=== PATIENT | male | born 1945 | race Caucasian/White ===

== ENCOUNTER 2017-06-17 10:22 | Day surgery (SDC) | payer MEDICARE ==
[2017-06-09 10:07] VITALS: BMI 31.1
[~2017-06-17 10:22] MED LIST: DEXAMETHASONE SOD PHOSPHATE 10 MG/ML 1 ML VIAL IV ONE; LACTATED RINGERS 1,000 ML IV SCH; LIDOCAINE 1% 20 ML VIAL (10MG/ML) FOR IV START INTRADERMA PRN; ONDANSETRON 4 MG/2 ML VIAL IVP ONE
[2017-06-17 11:01] VITALS: RESP 18; TEMP 98
[2017-06-17] MEDS ORDERED: LACTATED RINGERS 1,000 ML IV ONE (11:01)
[2017-06-17] MEDS: CYCLOPENTOLATE 1% OPHTH SOLN 2 ML BTL OP ONE ×3 (11:02→11:19)
[2017-06-17] MEDS: FLURBIPROFEN 0.03% OPHTH DROPS 2.5 ML BTL OP ONE ×3 (11:05→11:21)
[2017-06-17] MEDS: PHENYLEPHRINE 10% OPHTH DROPS 5 ML BTL OP ONE ×3 (11:07→11:23)
[2017-06-17] MEDS ORDERED: PROPOFOL 10 MG/ML 20 ML VIAL IV ONE (12:11)
[2017-06-17] MEDS ORDERED: EPINEPHrine (PF) 0.5 ML in BALANCED SALT IRRIG SOLN COMB2 500 ML IRRIGATION ONE (12:14)
[2017-06-17] MEDS ORDERED: BALANCED SALT IRRIG SOLN COMB2 15 ML IRRIG.SOLN IRRIGATION ONE (12:21)
[2017-06-17] MEDS ORDERED: HYALURONATE SODIUM INTRAOCULAR 1 EACH SYRINGE (10MG/ML) INTRAOCULA ONE (12:22)
--- NOTE | 2017-06-17 12:34 | P.OP ---
Date of Procedure: 06/17/17 Procedure(s) Performed: PREOPERATIVE DIAGNOSIS: Cataract, right eye. POSTOPERATIVE DIAGNOSIS: Cataract, right eye. OPERATION: Phacoemulsification cataract, right eye. DESCRIPTION OF PROCEDURE: The patient was taken to the preoperative holding area. Intravenous Propofol was given so as to bring about adequate sedation. The following mixture was given for local anesthesia: 5 mL of 2% lidocaine, 5 mL of 0.75% Marcaine, and 1 mL of Wydase. Approximately 4 mL was injected in the retrobulbar space of the surgical eye. Additional 1 mL was then directed to the temporal area of the surgical eye. This was performed to allow adequate neurological block of the facial muscles. The patient was revived and then taken into the operative room. The patient was prepped and draped in the usual sterile manner for the operative eye. A lid speculum was put into position. The conjunctiva was resected back from the limbus in the 12 o'clock position. Bleeding was controlled with electrocautery. A #69 blade was then used and a half-thickness scleral incision approximately 1-mm posterior to the limbus was made on bare sclera. This was shelved in the clear cornea using a crescent knife. Next a 15-degree blade was used to make a stab incision at the 3 o' clock position at the corneolimbal interface. Keratome blade was then used and the superior wound was extended into the anterior chamber. Viscoelastic was injected into the anterior chamber and to maintain its form. Next, a cystotome was used and a continuous anterior capsulotomy was made without difficulty. Hydrodissection using a blunt cannula and BSS was performed. Phaco probe was then employed and a groove extending from 12 to 6 o'clock in the lens was created. A Yordy wand was used through the stab incision so as to perform a divide and conquer technique. Next an irrigation aspiration probe was utilized and any residual cortex was removed from the eye. Again, viscoelastic was injected into the anterior chamber. An Minh posterior chamber lens implant was placed in the cartridge and injected into the anterior chamber without difficulty. The Trust Metricsey hook was utilized to spin the lens into position and this was again performed without any difficulty. The irrigation and aspiration probe was again employed and any residual viscoelastic was removed from the eye. Then BSS was injected into the limbal stab incision and the anterior chamber re-inflated. The conjunctiva was reapproximated using electrocautery. One drop of 0.25% Timoptic was placed over the corneal along with TobraDex ophthalmic ointment. Two sterile patches and a Capps eye shield were taped into position. The patient was transported to the recovery room in stable condition. Pathology: none sent Condition: stable Disposition: same day
[2017-06-17 12:57] VITALS: BP 142/85; PULSE 53
[2017-06-17] MEDS ORDERED: BUPIVACAINE (PF) 0.75% 5 ML, HYALURONIDASE, HUMAN RECOMB 150 UNIT, LIDOCAINE 2% (PF) 10... MISCELLANE ONE ×3 (23:00)
[2017-06-17] MEDS ORDERED: GENTAMICIN/PREDNISOL AC OPHTH OINT 3.5GM OPHTHALMIC ONE (23:00)
[2017-06-17] MEDS ORDERED: TIMOLOL 0.5% OPHTH DROPS 5 ML BTL OP ONE (23:00)
== END 2017-06-17 13:31 | disposition home or self-care (01) ==
LOC: OR 10:22
PROVIDERS: ATTEND Ophthalmology
DX: H25.11 Age-related nuclear cataract, right eye (principal); E78.5 Hyperlipidemia, unspecified; E07.9 Disorder of thyroid, unspecified; Z79.82 Long term (current) use of aspirin; Z79.890 Hormone replacement therapy; Z79.899 Other long term (current) drug therapy; Z88.0 Allergy status to penicillin; Z91.030 Bee allergy status; Z91.018 Allergy to other foods
CPT/HCPCS: 66984; V2632; J3470; J2001; J0171; J2704

== ENCOUNTER 2018-02-17 08:43 | Day surgery (SDC) | payer MEDICARE ==
[2018-02-13 08:54] VITALS: BMI 29.7
[~2018-02-17 08:43] MED LIST changes: -DEXAMETHASONE SOD PHOSPHATE 10 MG/ML 1 ML VIAL IV ONE; -LIDOCAINE 1% 20 ML VIAL (10MG/ML) FOR IV START INTRADERMA PRN; -ONDANSETRON 4 MG/2 ML VIAL IVP ONE
[2018-02-17 09:30] VITALS: RESP 16; TEMP 97.9
[2018-02-17] MEDS ORDERED: PROPOFOL 10 MG/ML 20 ML VIAL IV ONE (10:38)
--- NOTE | 2018-02-17 11:12 | P.PCN ---
Date of Procedure: 02/17/18 Procedure(s) Performed: Procedure: Total colonoscopy. Preoperative diagnosis: Screening for neoplasia. Postoperative diagnosis: Exam within normal limits. Preparation: HalfLytely prep. Sedation: Was provided by anesthesia. Brief clinical history: The patient is a 72-year-old male who is scheduled for this evaluation for screening for neoplasia because of age as risk factor as well as history of polyps and family history of colon cancer in his dad. His last exam was in 2012. The patient has no abdominal complaints, bleeding or anemia. Procedure: With the patient on his left lateral decubitus position and after informed consent and adequate sedation, the perianal area was inspected and it did not show any fissures or fistulas. There were no masses felt on digital rectal examination. The Olympus CFQ 160L video colonoscope was then inserted in the rectum in the usual fashion and advanced to the cecum. The mucosa appeared healthy. No polyps or tumors were seen or any obvious diverticular disease or other pathology. I retroflexed the endoscope in the rectum before the endoscope was withdrawn. The patient tolerated the procedure well. Plan: The patient was reassured. He will follow up with you as planned and I recommended repeat exam in 5 years.
[2018-02-17 11:28] VITALS: BP 131/78; PULSE 58
[2018-02-17] MEDS ORDERED: LACTATED RINGERS 1,000 ML IV SCH (21:45)
== END 2018-02-17 12:04 | disposition home or self-care (01) ==
LOC: ORWHC2ENDO 08:43
DX: Z12.11 Encounter for screening for malignant neoplasm of colon (principal); M19.90 Unspecified osteoarthritis, unspecified site; N40.0 Benign prostatic hyperplasia without lower urinary tract symptoms; E78.5 Hyperlipidemia, unspecified; E07.9 Disorder of thyroid, unspecified; Z80.0 Family history of malignant neoplasm of digestive organs; Z88.0 Allergy status to penicillin; Z91.018 Allergy to other foods; Z86.010 Personal history of colon polyps; Z79.82 Long term (current) use of aspirin; Z79.899 Other long term (current) drug therapy
CPT/HCPCS: J2704; G0105

== ENCOUNTER → 2021-01-24 | Outpatient (CLI) | payer OTHER ==
--- NOTE | 2021-01-24 18:36 | CONS ---
CONSULTATION DATE OF SERVICE: 01/24/2021 This 75-year-old gentleman has been evaluated in Sleep Center for possible obstructive sleep apnea-hypopnea syndrome. HISTORY OF PRESENT ILLNESS/SLEEP-WAKE EVALUATION: The patient had a sleep study in another institution in 2002 which showed mild obstructive sleep apnea-hypopnea syndrome. At present, the patient snores loudly according to his , has witnessed episodes of stopped breathing during sleep, restless leg symptoms during the night, sweating, awakenings from sleep up to 3 times with one episode of nocturia. The patient also has kicking movements during the night. No history of hypnagogic hallucinations, sleep paralysis or cataplexy. During the day, the patient feels significant sleepiness. [place] Sleepiness Scale is in very high range at 18. The patient may take up to 2 naps a day, usually about 3 or 4 p.m. and 7 p.m. PAST MEDICAL HISTORY: Positive for hypothyroidism, hyperlipidemia, arthritis. PAST SURGICAL HISTORY: Left knee meniscus surgery, bilateral cataract surgery. MEDICATIONS: 1. Lipitor 40 mg once a day. 2. Synthroid 120 mcg once a day. 3. Celebrex 200 mg twice a day. 4. Vitamin D. REVIEW OF SYSTEMS: No fevers. No double vision. No recent chest pain. No shortness of breath. No abdominal pain. No bleeding episodes. No blood in the urine. No seizure episodes. Awakenings from sleep, snoring, sleepiness during the day. SOCIAL HISTORY: Negative for smoking or using alcohol. FAMILY HISTORY: Positive for heart problems, asthma, sleep apnea. PHYSICAL EXAMINATION: GENERAL: gentleman without distress. VITAL SIGNS: BP 119/67, HR 71, RR 15, height 5 feet 5-1/2 inches, weight 194.8 pounds, body mass index 31.9, temperature 97.3, oxygen saturation at room air 98%. HEENT: PERRLA, EOMI, evaluation of oropharynx showed tongue protrudes midline. Extremely low position of soft palate; Mallampati IV. NECK: Supple, no JVD. Thyroid is not palpable. Neck measures 16-1/2 inches in circumference. LUNGS: Clear to percussion and to auscultation. Good air exchange. No wheezing or rhonchi. HEART: S1, S2 regular. No murmurs, gallops, or rubs. ABDOMEN: Obese. EXTREMITIES: No clubbing or cyanosis. WALKING DRAGLINE OPERATOR: Awake, alert, and oriented X3. Cranial nerves 2 to 7 intact. There is no fasciculation or atrophy. noted. No focal deficits observed. IMPRESSION: 1. Loud snoring, witnessed episodes of stopped breathing during sleep, extremely low position of soft palate, Mallampati 4, borderline size of neck at 16-1/2 inches in circumference, daytime sleepiness; obstructive sleep apnea-hypopnea syndrome. 2. Significant excessive daytime sleepiness. [place] Sleepiness Scale is 18. The patient takes naps 2 times a day. Differential diagnosis should include hypersomnia and narcolepsy without cataplexy. 3. Obesity; body mass index 31.9. 4. Restless leg symptoms. 5. Periodic limb movement symptoms with kicking at night. 6. Hypothyroidism. 7. Hyperlipidemia. 8. Arthritis. 9. Status post left knee surgery for meniscus problems. 10.Status post bilateral cataract surgery. PLAN: 1. Polysomnography for evaluation of patient's breathing during sleep. 2. CPAP/BiPAP titration if sleep study confirms obstructive sleep apnea-hypopnea syndrome. 3. Preferable position during sleep on the side. 4. No driving if patient feels any sleepiness. 5. I will see patient for follow up visit to explain results of testing and following plan. Thank you very much for referring this patient for consultation. Sincerely, Ky Juarez MD, PhD, FAASM Diplomat of [employer] Sleep Medicine Board of [employer] [facility] [place] MMODL / IJN: [id number] /
== END ==
LOC: SLEEP 13:13
PROVIDERS: ATTEND Internal Medicine
DX: G47.33 Obstructive sleep apnea (adult) (pediatric) (principal); E03.9 Hypothyroidism, unspecified; E66.9 Obesity, unspecified; E78.5 Hyperlipidemia, unspecified; G25.81 Restless legs syndrome; M19.90 Unspecified osteoarthritis, unspecified site; G47.61 Periodic limb movement disorder; Z98.890 Other specified postprocedural states; Z68.31 Body mass index [BMI] 31.0-31.9, adult; Z98.41 Cataract extraction status, right eye; Z98.42 Cataract extraction status, left eye; Z79.899 Other long term (current) drug therapy; Z88.0 Allergy status to penicillin; Z91.030 Bee allergy status
CPT/HCPCS: 99211

== ENCOUNTER → 2021-04-04 | Outpatient (CLI) | payer OTHER ==
--- NOTE | 2021-04-05 08:29 | SFUN ---
SLEEP CENTER FOLLOW UP NOTE DATE OF SERVICE: 04/04/2021 75-year-old gentleman has been followed in Sleep Center to discuss results of the sleep study and following plan. I discussed results of sleep study with the patient and family in detail. Sleep study did not show any significant respiratory abnormalities, but it shows severe periodic limb movements 90.2 times per hour. [place] Sleepiness Scale today is in very high range of 21. CURRENT MEDICATIONS: Synthroid, Lipitor, aspirin, vitamin D3. PHYSICAL EXAMINATION: GENERAL: Patient in no distress. BP 131/71, HR 64, RR 15, height 5 feet 5-1/2 inches, weight 196.6 pounds, body mass index 32.1, temperature 97.1, oxygen saturation at room air 98%. HEENT: PERRLA, EOMI, evaluation of oropharynx showed tongue protrudes midline. NECK: Supple, no JVD. Thyroid is not palpable. LUNGS: Clear to percussion and to auscultation. Good air exchange. No wheezing or rhonchi. HEART: S1, S2 regular. No murmurs, gallops, or rubs. ABDOMEN: Soft and nontender. Bowel sounds are present. No organomegaly appreciated. EXTREMITIES: No clubbing or cyanosis. APPEALS COORDINATOR: Awake, alert, and oriented X3. Cranial nerves 2 to 7 intact. There is no fasciculation or atrophy. noted. No focal deficits observed. IMPRESSION: 1. No significant respiratory abnormalities during the sleep study. 2. Severe periodic limb movements 90.2 times per hour with 2.3 microarousals per hour. 3. Mild obesity. 4. Hypothyroidism. 5. Hyperlipidemia. 6. Arthritis. 7. Status post left knee surgery for meniscus problems. 8. Status post bilateral cataract surgery. PLAN: 1. I will start patient with Mirapex 0.125 mg 1-2 tablets at bedtime with a goal to prevent periodic limb movements. 2. Sleep hygiene with regular time in bed for 7-1/2 to 8 hours. 3. No driving if feeling sleepiness. 4. Watching and losing weight. Thank you very much for allowing me to participate in management of your patient. Sincerely, Ky Juarez MD, PhD, FAASM Diplomat of [employer] Sleep Medicine Board of [employer] [facility] [place] MMODL / IJN: [id number] /
== END ==
LOC: SLEEP 14:46
PROVIDERS: ATTEND Internal Medicine
DX: G47.8 Other sleep disorders (principal); G47.61 Periodic limb movement disorder; E66.9 Obesity, unspecified; E03.9 Hypothyroidism, unspecified; E78.5 Hyperlipidemia, unspecified; M19.90 Unspecified osteoarthritis, unspecified site; Z98.890 Other specified postprocedural states; Z98.49 Cataract extraction status, unspecified eye; Z68.32 Body mass index [BMI] 32.0-32.9, adult; Z79.899 Other long term (current) drug therapy

== ENCOUNTER → 2023-01-24 | Day surgery (SDC) | payer OTHER ==
[2023-01-22 09:24] VITALS: BMI 29.0
[~2023-01-24] MED LIST changes: +LIDOCAINE 1% (10MG/ML) FOR IV START INTRADERMA PRN; +PROPOFOL 10 MG/ML 20 ML VIAL IV ONE
[2023-01-24 08:25] VITALS: TEMP 97.6
--- NOTE | 2023-01-24 09:07 | P.PCN ---
Date of Procedure: 01/24/23 Procedure(s) Performed: BRIEF HISTORY: Patient is a 77-year-old pleasant white male scheduled for an elective colonoscopy as a part of screening for colon cancer and family history of colon cancer. PROCEDURE PERFORMED: Colonoscopy. PREOPERATIVE DIAGNOSIS: Screening for colon cancer/family history of colon cancer. IV sedation per Anesthesia. PROCEDURE: After informed consent was obtained, the patient, was brought into the endoscopy unit. IV sedation was administered by Anesthesia under continuous monitoring. Digital rectal examination was normal. Initially the Olympus CF-160 flexible video colonoscope was then inserted in the rectum, gradually advanced into the cecum without any difficulty. Careful examination was performed as the scope was gradually being withdrawn. Ileocecal valve and the appendiceal orifice were visualized and appeared normal. Prep was excellent. Mucosa of the cecum, ascending colon, transverse colon, descending colon, sigmoid colon, and rectum appeared normal. Scattered sigmoid diverticulosis Retroflexion was performed in the rectum and no lesions were seen. The patient tolerated the procedure well. IMPRESSION: Normal-appearing colon from rectum to cecum with no evidence of colorectal neoplasia . Scattered sigmoid diverticula RECOMMENDATIONS: Findings of this examination were discussed with the patient as well as his family. He was advised to have a repeat screening colonoscopy in 5 years because of the family history of colon cancer..
[2023-01-24 09:14] VITALS: RESP 16
[2023-01-24 09:34] VITALS: BP 103/62; PULSE 72
== END ==
LOC: ORWHC2ENDO 07:57
PROVIDERS: ATTEND Internal Medicine Gastroenterology
DX: Z12.11 Encounter for screening for malignant neoplasm of colon (principal); K57.30 Diverticulosis of large intestine without perforation or abscess without bleeding; E78.5 Hyperlipidemia, unspecified; E03.9 Hypothyroidism, unspecified; Z80.0 Family history of malignant neoplasm of digestive organs; Z79.890 Hormone replacement therapy; Z79.899 Other long term (current) drug therapy
CPT/HCPCS: 45378; J2704

== ENCOUNTER 2023-06-11 03:34 | Observation (INO) | payer OTHER, MEDICARE ==
[2023-06-11] MEDS ORDERED: NITROGLYCERIN OINT 1 INCH/GM PACKET TOPICAL STA (03:40)
--- NOTE | 2023-06-11 03:49 | ED ---
Chest Pain HPI - General Chief Complaint: Chest Pain Stated Complaint: Chest Pain Time Seen by Provider: 06/11/23 03:39 Source: patient, EMS Mode of arrival: EMS Limitations: no limitations - History of Present Illness Initial Comments: Emiliano is a pleasant 77-year-old gentleman who presents the ER today via ambulance for evaluation of chest pain. Patient reports that pain began on Friday described as a pressure-like sensation in his chest with the occasional stabbing pains. Patient has no cardiac history so he due to the pain. Patient was able to shovel snow off the walkway did have the pain at that time did feel he can slightly worse. Today patient was unable this sleep due to the pain, felt like the pain radiated from his chest into his back. Patient no associated diaphoresis lightheadedness or shortness of breath. Had no fevers or chills. Patient did have COVID at [facility] time but has been well since then. - Related Data Home Medications Medication Instructions Recorded Confirmed Atorvastatin [Lipitor] 40 mg PO DAILY 03/12/17 01/24/23 Cholecalciferol [Vitamin D3] 1,000 unit PO DAILY 03/12/17 01/24/23 Levothyroxine Sodium [Synthroid] 125 mcg PO QAM 03/12/17 01/24/23 Vit C/E/Zn/Coppr/Lutein/Zeaxan 1 each PO DAILY 02/13/18 01/24/23 [Preservision Areds 2 Softgel] Allergies Allergy/AdvReac Type Severity Reaction Status Date / Time bee venom protein (honey bee) Allergy Swelling Verified 01/24/23 08:18 Penicillins Allergy Anaphylaxis Verified 01/24/23 08:18 Review of Systems ROS Statement: Those systems with pertinent positive or pertinent negative responses have been documented in the HPI. ROS Other: All systems not noted in ROS Statement are negative. EKG Findings - EKG Comments: EKG Findings:: EKG obtained due to complaint of chest pain, EKG obtained at 3:40 AM, rate is 66 rhythm is sinus with occasional PVCs, there Q waves in the anterior leads, no acute ST elevations or depressions no evidence of acute ischemia or infarction. The EKG obtained due to patient's complaint of chest pain EKG obtained at 6:15 AM, rate is 56 rhythm is sinus bradycardia, normal axis, normal intervals no acute ST elevations or depressions no evidence of acute ischemia or infarction. Past Medical History Past Medical History: Cancer, Hyperlipidemia, Osteoarthritis (OA), Sleep Apnea/CPAP/BIPAP, Thyroid Disorder Additional Past Medical History / Comment(s): possible sleep apnea-no tx., enlarged prostate, hx. colon polyps prostate ca 2020 radiation tx and clear History of Any Multi-Drug Resistant Organisms: None Reported Additional Past Surgical History / Comment(s): lt eye vitrectomy( july 2016).vasectomy, cataracts removed,colonoscopy Past Anesthesia/Blood Transfusion Reactions: No Reported Reaction Past Psychological History: No Psychological Hx Reported Smoking Status: Never smoker Past Alcohol Use History: None Reported Past Drug Use History: None Reported - Past Family History Mother Additional Family Medical History / Comment(s): CABG Father Family Medical History: Cancer Brother(s) Family Medical History: Cancer, Diabetes Mellitus Additional Family Medical History / Comment(s): kidney General Exam Limitations: no limitations Course Vital Signs 06/11/23 06/11/23 06/11/23 03:35 04:39 05:00 Temperature 98.6 F Pulse Rate 67 55 L Respiratory 18 16 Rate Blood Pressure 135/76 131/80 O2 Sat by Pulse 91 L 98 97 Oximetry 06/11/23 06:09 Temperature Pulse Rate 56 L Respiratory 20 Rate Blood Pressure 143/75 O2 Sat by Pulse 94 L Oximetry Chest Pain MDM - MDM Was pt. sent in by a medical professional or institution (, PA, [facility], urgent care, hospital, or snf...) When possible be specific @ -No Did you speak to anyone other than the patient for history (EMS, parent, family, police, friend...)? What history was obtained from this source @ -No Did you review nursing and triage notes (agree or disagree)? Why? @ -I reviewed and agree with nursing and triage notes Were old charts reviewed (outside hosp., previous admission, EMS record, old EKG, old radiological studies, urgent care reports/EKG's, snf records)? Report findings @ -No old charts were reviewed Differential Diagnosis (chest pain, altered mental status, abdominal pain women, abdominal pain men, vaginal bleeding, weakness, fever, dyspnea, syncope, headache, dizziness, GI bleed, back pain, seizure, CVA, palpatations, mental health)? @ -Differential Chest Pain: Stable Angina, Unstable Angina, STEMI, NSTEMI Aortic Dissection, Pneumothorax, Musculoskeletal, Esophageal Spasm GERD, Cholecystitis, Pancreatitis, Zoster, this is not meant to be an all-inclusive list. EKG interpreted by me (3pts min.). @ -As above X-rays interpreted by me (1pt min.). @ -Low lung volume, no obvious consolidations no widened mediastinum CT interpreted by me (1pt min.). @ -None done U/S interpreted by me (1pt. min.). @ -None done What testing was considered but not performed or refused? (CT, X-rays, U/S, labs)? Why? @ -None What meds were considered but not given or refused? Why? @ -Narcotic pain medications declined Did you discuss the management of the patient with other professionals (tiara abdul i.eLivan Estrada, PA, [facility], lab, RT, psych nurse, social work lecturer, asset protection manager, teacher, landcare officer, field nurse case manager)? Give summary @ -No Was smoking cessation discussed for >3mins.? @ -No Was critical care preformed (if so, how long)? @ -No Were there social determinants of health that impacted care today? How? (Homelessness, low income, unemployed, alcoholism, drug addiction, transportation, low edu. Level, literacy, decrease access to med. care, care home, rehab)? @ -No Was there de-escalation of care discussed even if they declined (Discuss DNR or withdrawal of care, Hospice)? DNR status @ -No What co-morbidities impacted this encounter? (DM, HTN, Smoking, COPD, CAD, Cancer, CVA, ARF, Chemo, Hep., AIDS, mental health diagnosis, sleep apnea, morbid obesity)? @ -None Was patient admitted / discharged? Hospital course, mention meds given and route, prescriptions, significant lab abnormalities, going to OR and other pertinent info. @ Admit Patient was seen and evaluated, history is obtained from the patient and EMS. 77-year-old male no cardiac history was pressure-like squeezing chest pain for a day and a half. Pain kept him up from sleeping tonight which prompted him to the ER. Pain improved significantly after nitro from EMS. Patient will be admitted for cardiac workup. Undiagnosed new problem with uncertain prognosis? @ -No Drug Therapy requiring intensive monitoring for toxicity (Heparin, Nitro, Insulin, Cardizem)? @ -No Were any procedures done? @ -No Diagnosis/symptom? @ -Chest pain Acute, or Chronic, or Acute on Chronic? @ -Acute Uncomplicated (without systemic symptoms) or Complicated (systemic symptoms)? @ -default Side effects of treatment? @ -No Exacerbation, Progression, or Severe Exacerbation? @ -No Poses a threat to life or bodily function? How? (Chest pain, [place], [place], pneumonia, PE, COPD, DKA, ARF, appy, cholecystitis, CVA, Diverticulitis, Homicidal, Suicidal, threat to staff... and all critical care pts) @ -Yes Disposition Clinical Impression: Chest pain Disposition: ADMITTED IP TO THIS HOSP Condition: Stable
[2023-06-11 03:53] VITALS: TEMP 98.6
[2023-06-11 04:12] LABS: Basophils % (A) 0 %; Eosinophils # (A) 0.1 k/uL (0-0.7); Eosinophils % (A) 1 %; HCT 40.3 % (39.0-53.0); HGB 14.2 gm/dL (13.0-17.5); Lymphocytes # (A) 1.3 k/uL (1.0-4.8); Lymphocytes % (A) 12 %; MCH 32.5 pg (25.0-35.0); MCHC 35.3 g/dL (31.0-37.0); MCV 92.1 fL (80.0-100.0); Mean Platelet Volume 7.4; Monocytes # (A) 0.5 k/uL (0-1.0); Monocytes % (A) 5 %; Neutrophils # (A) 8.5 k/uL (1.3-7.7); Neutrophils % (A) 79 %; Platelet Count 176 k/uL (150-450); RBC 4.38 m/uL (4.30-5.90); RDW 12.8 % (11.5-15.5); WBC 10.7 k/uL (3.8-10.6)
[2023-06-11 04:20] LABS: INR 0.9 (<1.2); Prothrombin Time 10.3 sec (10.0-12.5)
[2023-06-11 04:21] LABS: ALT 20 U/L (4-49); AST 20 U/L (17-59); African American GFR (CKD) >90 (>60 ml/min/1.73 sqM); Albumin 3.5 g/dL (3.5-5.0); Alkaline Phosphatase 117 U/L (38-126); Anion Gap 5 mmol/L; Blood Urea Nitrogen 12 mg/dL (9-20); Calcium 8.5 mg/dL (8.4-10.2); Carbon Dioxide 24 mmol/L (22-30); Chloride 107 mmol/L (98-107); Glucose 129 mg/dL (74-99); Lipase 102 U/L (23-300); Magnesium 1.9 mg/dL (1.6-2.3); Non-African American GFR(CKD) >90 (>60 ml/min/1.73 sqM); Potassium 4.2 mmol/L (3.5-5.1); Sodium 136 mmol/L (137-145); Total Bilirubin 0.6 mg/dL (0.2-1.3); Total Protein 5.9 g/dL (6.3-8.2)
--- NOTE | 2023-06-11 04:21 | XR ---
EXAMINATION TYPE: XR chest 2V DATE OF EXAM: 06/11/2023 COMPARISON: NONE HISTORY: Chest pain since Friday. TECHNIQUE: Frontal and lateral views of the chest are obtained. FINDINGS: Low lung volumes are present. Patchy bibasilar opacities. No pleural effusion or pneumotho rax seen bilaterally. Cardiac silhouette size is within normal limits. Bridging osteophytes in the th oracic spine are noted.. There are old healed fractures of the posterolateral right sixth and seventh ribs. IMPRESSION: Low lung volumes with patchy left greater than right bibasilar atelectasis and/or develo ping acute infiltrates.
[2023-06-11 04:30] LABS: NT-Pro-B-Type Natriuretic Pept 92 pg/mL
[2023-06-11] MEDS ORDERED: ASPIRIN 81 MG PO SCH (09:00)
[2023-06-11] MEDS ORDERED: DOCUSATE 100 MG CAP PO PRN (09:28)
[2023-06-11] MEDS ORDERED: NALOXONE 0.4 MG/ML 1 ML VIAL IV PRN (09:29)
[2023-06-11] MEDS ORDERED: ONDANSETRON 4 MG/2 ML VIAL IVP PRN (09:29)
[2023-06-11] MEDS ORDERED: ACETAMINOPHEN TAB 325 MG TAB PO PRN (09:29)
[2023-06-11] MEDS ORDERED: SODIUM CHLORIDE 0.9% 1,000 ML IV SCH (09:30)
[2023-06-11] MEDS ORDERED: LEVOTHYROXINE 125 MCG TAB PO SCH (09:30)
[2023-06-11] MEDS ORDERED: CHOLECALCIFEROL 25 MCG (1000 IU) TABLET PO SCH (09:30)
--- NOTE | 2023-06-11 09:31 | P.CRDCN ---
History of Present Illness History of present illness: HISTORY OF PRESENT ILLNESS: This is a 77-year-old male with a past medical history significant for hyperlipidemia and hypothyroidism. Patient does not follow with a stitcher tape controlled machine. We have been asked to see the patient in consultation for chest pain. Patient examined at the bedside. In the emergency room. The patient reports she started developing chest pressure on Friday. He states the pain starts in the front of his chest and radiates into his back. He does report that he shovel his driveway twice this week and did not have any chest pain at that time. He also reports having pain in the epigastric area. He reports nausea with dry heaves. He denied any shortness of breath. He currently denies any chest pain or pressure. Denies shortness of breath. Vital signs are stable. DIAGNOSTICS: - EKG reveals sinus mechanism with nonspecific ST-T wave changes. PVCs. No signs of acute ischemia. - Chest xray low lung volumes with patchy left greater than right bibasilar atel ectasis and/or developing infiltrates - Laboratory data: WBC 10.7. Hemoglobin 14.2. Platelet count 176. Sodium 136. Potassium 4.2. BUN 12. Creatinine 0.62. Magnesium 1.9. Troponin negative x 2 - Current home cardiac medications include Lipitor 40 mg at night and aspirin 81 mg daily. REVIEW OF SYSTEMS: At the time of my exam: CONSTITUTIONAL: Denies fever or chills. HEENT: Denies blurred vision, vision changes, or eye pain. Denies hemoptysis CARDIOVASCULAR: Denies chest pain. Denies orthopnea. Denies PND. Denies palpitations RESPIRATORY: Denies shortness of breath. GASTROINTESTINAL: Denies abdominal pain. Denies nausea or vomiting. HEMATOLOGIC: Denies bleeding disorders. GENITOURINARY: Denies any blood in urine. SKIN: Denies pruitis. Denies rash. PHYSICAL EXAM: VITAL SIGNS: Reviewed. GENERAL: Well-developed in no acute distress. HEENT: Head is normocephalic. Pupils are equal, round. Sclerae anicteric. Mucous membranes of the mouth are moist. Neck supple. No JVD or thyromegaly LUNGS: Respirations even and unlabored. Lungs essentially clear to auscultation bilaterally. HEART: Regular rate and rhythm. S1 and S2 heard. ABDOMEN: Soft. Nondistended. Nontender. EXTREMITIES: Normal range of motion. No clubbing or cyanosis. Peripheral pulses intact. No lower extremity edema NEUROLOGIC: Awake and alert. Oriented x 3. ASSESSMENT: Chest pain,, troponin negative x 3 Hyperlipidemia History of prostate cancer with radiation, 2020 PLAN: An acute coronary event has been ruled out Resume aspirin and atorvastatin Obtain 2D echo to assess cardiac structure and function Patient to undergo stress echocardiogram today If negative, the patient may be discharged home today from a cardiac standpoint Nurse practitioner note has been reviewed by physician. Signing provider agrees with the documented findings, assessment, and plan of care documented by DIRECTOR as a scribe. Past Medical History Past Medical History: Cancer, Hyperlipidemia, Osteoarthritis (OA), Sleep Apnea/CPAP/BIPAP, Thyroid Disorder Additional Past Medical History / Comment(s): possible sleep apnea-no tx., enlarged prostate, hx. colon polyps prostate ca 2020 radiation tx and clear History of Any Multi-Drug Resistant Organisms: None Reported Additional Past Surgical History / Comment(s): lt eye vitrectomy( july 2016).vasectomy, cataracts removed,colonoscopy Past Anesthesia/Blood Transfusion Reactions: No Reported Reaction Past Psychological History: No Psychological Hx Reported Smoking Status: Never smoker Past Alcohol Use History: None Reported Past Drug Use History: None Reported - Past Family History Mother Additional Family Medical History / Comment(s): CABG Father Family Medical History: Cancer Brother(s) Family Medical History: Cancer, Diabetes Mellitus Additional Family Medical History / Comment(s): kidney Medications and Allergies Home Medications Medication Instructions Recorded Confirmed Type Atorvastatin [Lipitor] 40 mg PO HS 03/12/17 06/11/23 History Levothyroxine Sodium [Synthroid] 125 mcg PO QAM 03/12/17 06/11/23 History Vit C/E/Zn/Coppr/Lutein/Zeaxan 1 cap PO BID 02/13/18 06/11/23 History [Preservision Areds 2 Softgel] Aspirin 81 mg PO ONCE 06/11/23 06/11/23 History Cholecalciferol [Vitamin D3 (25 25 mcg PO BID 06/11/23 06/11/23 History Mcg = 1000 Iu)] Docusate [Colace] 100 mg PO DAILY PRN 06/11/23 06/11/23 History Allergies Allergy/AdvReac Type Severity Reaction Status Date / Time bee venom protein (honey bee) Allergy Swelling Verified 06/11/23 07:03 Penicillins Allergy Anaphylaxis Verified 06/11/23 07:03 Physical Exam Vitals: Vital Signs Temp Pulse Resp BP Pulse Ox 06/11/23 06:09 56 L 20 143/75 94 L 06/11/23 05:00 97 06/11/23 04:39 55 L 16 131/80 98 06/11/23 03:35 98.6 F 67 18 135/76 91 L Intake and Output 06/10/23 06/11/23 06/11/23 22:59 06:59 14:59 Other: Weight 83.915 kg Results 06/11/23 04:05 06/11/23 04:05 Cardiac Enzymes 06/11/23 06/11/23 Range/Units 04:05 04:05 AST 20 (17-59) U/L Troponin I <0.012 (0.000-0.034) ng/mL Coagulation 06/11/23 Range/Units 04:05 PT 10.3 (10.0-12.5) sec APTT 23.0 (22.0-30.0) sec CBC 06/11/23 Range/Units 04:05 WBC 10.7 H (3.8-10.6) k/uL RBC 4.38 (4.30-5.90) m/uL Hgb 14.2 (13.0-17.5) gm/dL Hct 40.3 (39.0-53.0) % Plt Count 176 (150-450) k/uL Comprehensive Metabolic Panel 06/11/23 Range/Units 04:05 Sodium 136 L (137-145) mmol/L Potassium 4.2 (3.5-5.1) mmol/L Chloride 107 (98-107) mmol/L Carbon Dioxide 24 (22-30) mmol/L BUN 12 (9-20) mg/dL Creatinine 0.62 L (0.66-1.25) mg/dL Glucose 129 H (74-99) mg/dL Calcium 8.5 (8.4-10.2) mg/dL AST 20 (17-59) U/L ALT 20 (4-49) U/L Alkaline Phosphatase 117 (38-126) U/L Total Protein 5.9 L (6.3-8.2) g/dL Albumin 3.5 (3.5-5.0) g/dL Current Medications Generic Name Dose Route Start Last Admin Trade Name Freq PRN Reason Stop Dose Admin Aspirin 325 mg 06/12/23 09:00 Aspirin 325 Mg Tab PO DAILY REANNA Intake and Output 06/10/23 06/11/23 06/11/23 22:59 06:59 14:59 Other: Weight 83.915 kg 06/11/23 04:05 06/11/23 04:05
--- NOTE | 2023-06-11 12:27 | CA ---
Stress Echo Report Emiliano Low Age: 77 Gender: M : 1945 Exam Date: 06/11/2023 11:54 Exam Location: [place] [facility] Ht (in): 66 Wt (lb): 185 Ordering Physician: Jossie Diaz Referring Physician: [id number] [employer]ast Furnace Blower: Elena Dueñas RDCS Technologist Procedure CPT: Indication: CP ICD-9 Codes: Rhythm: Patient History: Chest pain and hypercholesterolemia Cardiac Medications: Medications in past 24 hours: Contrast: Stress Results Protocol: Tuan Total dose(mL): Exercise Duration (min:sec): 8:[address] Depression (mm): Angina Score: Lombardo Score: METS: 10.3 Resting HR: 59 Resting BP: 120 / 47 Peak HR: 126 Peak BP: 170 / 65 Max Predicted HR: 143 88 % Max Predicted HR Target HR: 122 Double Product: [id number] Stress Summary: BP Response: Reason for Termination: MAX EXERTION/TARGET HR Cardiac Symptoms: NO SYMPTOMS ECG Analysis Resting ECG: Normal sinus rhythm, normal ECG Stress ECG: No significant ST-T wave changes diagnostic for ischemia by ST segment analysis Arrhythmia: No arrhythmias or ectopic beats Echo Analysis Resting Echo: Normal segmental and global systolic function. No resting regional wall motion abnormality Peak Echo Analysis: Normal augmentation of global and segmental systolic function. No stress-induced regional wall motion abnormality MEASUREMENTS (Male/Female) Normal Values CONCLUSIONS Poor exercise tolerance for patient's age achieving 10.3 METS Normal clinical and hemodynamic response to exercise Nonischemic ECG and echocardiographic response to exercise Overall normal treadmill stress echo Dr Cr Hammond (Electronically Signed) Final Date: 11 June 2023 12:26
--- NOTE | 2023-06-11 12:49 | P.HPIM ---
History of Present Illness H&P Date: 06/11/23 Chief Complaint: Chest pain * 77-year-old gentleman past medical history significant for dyslipidemia, history of osteoarthritis, history of prostate cancer [facility] with complaints of chest pain. Patient states he started having symptoms about 48 hours ago and was having mid sternal chest pressure. This was also associated with stabbing chest discomfort. Patient states he was able to shovel snow however he did have pain at that time. Patient states his symptoms got worse. And was unable to sleep secondary to pain. Patient also complained of chest pain radiating to his back. He denies associated dizziness, shortness of breath or diaphoresis. * In ER included CBC which showed WBC of 10.7 hemoglobin of 14.2, INR 0.9 serum chemistry sodium 136 potassium 4.2 BUN 12 creatinine 0.62 glucose 129 lipase within normal limits * KG obtained in ER showed sinus bradycardia no significant ST segment changes GA interval of 168, heart rate of 56 * Chest x-ray obtained showed low lung volumes likely atelectasis * Patient was admitted to medical floor with consultation from cardiology with plan for assessment to rule out ACS REVIEW OF SYSTEMS: Chest pain, nausea, abdominal distention CONSTITUTIONAL: No fever, no malaise, no fatigue. HEENT: No recent visual problems or hearing problems. Denied any sore throat. CARDIOVASCULAR: Chest pain PULMONARY: No shortness of breath, no cough, no hemoptysis. GASTROINTESTINAL: nausea, abdominal distention NEUROLOGICAL: No headaches, no weakness, no numbness. HEMATOLOGICAL: Denies any bleeding or petechiae. GENITOURINARY: Denies any burning micturition, frequency, or urgency. MUSCULOSKELETAL/RHEUMATOLOGICAL: Denies any joint pain, swelling, or any muscle pain. ENDOCRINE: Denies any polyuria or polydipsia. PHYSICAL EXAMINATION: GENERAL: The patient is alert and oriented x3, not in any acute distress. Well developed, well nourished. HEENT: Pupils are round and equally reacting to light. EOMI. No scleral icterus. No conjunctival pallor. Normocephalic, atraumatic. No pharyngeal erythema. No thyromegaly. CARDIOVASCULAR: S1 and S2 present. No murmurs, rubs, or gallops. PULMONARY: Chest is clear to auscultation, no wheezing or crackles. ABDOMEN: Soft, nontender, nondistended, normoactive bowel sounds. No palpable organomegaly. MUSCULOSKELETAL: No joint swelling or deformity. EXTREMITIES: No cyanosis, clubbing, or pedal edema. NEUROLOGICAL: Gross neurological examination did not reveal any focal deficits. SKIN: No rashes. Past Medical History Past Medical History: Cancer, Hyperlipidemia, Osteoarthritis (OA), Sleep Apnea/CPAP/BIPAP, Thyroid Disorder Additional Past Medical History / Comment(s): possible sleep apnea-no tx., enla rged prostate, hx. colon polyps prostate ca 2020 radiation tx and clear History of Any Multi-Drug Resistant Organisms: None Reported Additional Past Surgical History / Comment(s): lt eye vitrectomy( july 2016).vasectomy, cataracts removed,colonoscopy Past Anesthesia/Blood Transfusion Reactions: No Reported Reaction Past Psychological History: No Psychological Hx Reported Smoking Status: Never smoker Past Alcohol Use History: None Reported Past Drug Use History: None Reported - Past Family History Mother Additional Family Medical History / Comment(s): CABG Father Family Medical History: Cancer Brother(s) Family Medical History: Cancer, Diabetes Mellitus Additional Family Medical History / Comment(s): kidney Medications and Allergies Home Medications Medication Instructions Recorded Confirmed Type Atorvastatin [Lipitor] 40 mg PO HS 03/12/17 06/11/23 History Levothyroxine Sodium [Synthroid] 125 mcg PO QAM 03/12/17 06/11/23 History Vit C/E/Zn/Coppr/Lutein/Zeaxan 1 cap PO BID 02/13/18 06/11/23 History [Preservision Areds 2 Softgel] Aspirin 81 mg PO ONCE 06/11/23 06/11/23 History Cholecalciferol [Vitamin D3 (25 25 mcg PO BID 06/11/23 06/11/23 History Mcg = 1000 Iu)] Docusate [Colace] 100 mg PO DAILY PRN 06/11/23 06/11/23 History Allergies Allergy/AdvReac Type Severity Reaction Status Date / Time bee venom protein (honey bee) Allergy Swelling Verified 06/11/23 07:03 Penicillins Allergy Anaphylaxis Verified 06/11/23 07:03 Physical Exam Vitals: Vital Signs Temp Pulse Resp BP Pulse Ox 06/11/23 07:25 56 L 18 131/83 94 L 06/11/23 06:09 56 L 20 143/75 94 L 06/11/23 05:00 97 01/31/24 04:39 55 L 16 131/80 98 06/11/23 03:35 98.6 F 67 18 135/76 91 L Intake and Output 06/10/23 06/11/23 06/11/23 22:59 06:59 14:59 Other: Weight 83.915 kg Results CBC & Chem 7: 06/11/23 04:05 06/11/23 04:05 Labs: Abnormal Lab Results - Last 24 Hours (Table) 06/11/23 06/11/23 Range/Units 04:05 04:05 WBC 10.7 H (3.8-10.6) k/uL Neutrophils # 8.5 H (1.3-7.7) k/uL Sodium 136 L (137-145) mmol/L Creatinine 0.62 L (0.66-1.25) mg/dL Glucose 129 H (74-99) mg/dL Total Protein 5.9 L (6.3-8.2) g/dL Assessment and Plan Assessment: Assessment and plan * Chest pain rule out acute coronary syndrome * History of hypothyroidism * Dyslipidemia history * Hx Prostate cancer posttreatment * In regards to chest pain, serial troponins ordered, cardiology consulted as needed EKG * Regards to hypothyroid continue patient on Synthyroid, * Regards to history of dyslipidemia continue Lipitor * Status is full code Time with Patient: Greater than 30
--- NOTE | 2023-06-11 12:58 | XR ---
EXAMINATION TYPE: XR KUB DATE OF EXAM: 06/11/2023 Comparison: None Clinical History: 77-year-old male Distention Findings: Lung bases are clear. Supine imaging limited for assessment of free air. Mild scattered stool. No dilated small bowel. No suspicious calcifications seen. Left-sided pelvic phleboliths. Some surgical material at the pubi c bodies on both sides. Impression: Nonobstructive bowel gas pattern. Mild scattered stool burden.
[2023-06-11] MEDS ORDERED: SIMETHICONE 80 MG CHEWABLE PO SCH (13:00)
--- NOTE | 2023-06-11 13:40 | P.DS ---
Providers Date of admission: 06/11/23 04:53 Expected date of discharge: 06/11/23 Attending physician: Kaity Manrique Primary care physician: [facility] Course: * 77-year-old gentleman past medical history significant for dyslipidemia, history of osteoarthritis, history of prostate cancer presents to the emergency department with complaints of chest pain. Patient states he started having symptoms about 48 hours ago and was having mid sternal chest pressure. This was also associated with stabbing chest discomfort. Patient states he was able to shovel snow however he did have pain at that time. Patient states his symptoms got worse. And was unable to sleep secondary to pain. Patient also complained of chest pain radiating to his back. He denies associated dizziness, shortness of breath or diaphoresis. * In ER included CBC which showed WBC of 10.7 hemoglobin of 14.2, INR 0.9 serum chemistry sodium 136 potassium 4.2 BUN 12 creatinine 0.62 glucose 129 lipase within normal limits * KG obtained in ER showed sinus bradycardia no significant ST segment changes AR interval of 168, heart rate of 56 * Chest x-ray obtained showed low lung volumes likely atelectasis * Patient was admitted to medical floor with consultation from cardiology with plan for assessment to rule out ACS * Patient was admitted and seen in ED, had a stress test completed that was negative, x-ray KUB was completed which showed nonobstructive bowel pattern and stool burden noted. Patient encouraged to take MiraLAX upon discharge REVIEW OF SYSTEMS: Chest pain, , abdominal distention resolved CONSTITUTIONAL: No fever, no malaise, no fatigue. HEENT: No recent visual problems or hearing problems. Denied any sore throat. CARDIOVASCULAR: Chest pain PULMONARY: No shortness of breath, no cough, no hemoptysis. GASTROINTESTINAL: nausea, abdominal distention RESOLVED NEUROLOGICAL: No headaches, no weakness, no numbness. HEMATOLOGICAL: Denies any bleeding or petechiae. GENITOURINARY: Denies any burning micturition, frequency, or urgency. MUSCULOSKELETAL/RHEUMATOLOGICAL: Denies any joint pain, swelling, or any muscle pain. ENDOCRINE: Denies any polyuria or polydipsia. PHYSICAL EXAMINATION: GENERAL: The patient is alert and oriented x3, not in any acute distress. Well developed, well nourished. HEENT: Pupils are round and equally reacting to light. EOMI. No scleral icterus. No conjunctival pallor. Normocephalic, atraumatic. No pharyngeal erythema. No thyromegaly. CARDIOVASCULAR: S1 and S2 present. No murmurs, rubs, or gallops. PULMONARY: Chest is clear to auscultation, no wheezing or crackles. ABDOMEN: Soft, nontender, nondistended, normoactive bowel sounds. No palpable organomegaly. MUSCULOSKELETAL: No joint swelling or deformity. EXTREMITIES: No cyanosis, clubbing, or pedal edema. NEUROLOGICAL: Gross neurological examination did not reveal any focal deficits. SKIN: No rashes. Assessment and plan * Chest pain ruled out acute coronary syndrome * History of hypothyroidism * Dyslipidemia history * Hx Prostate cancer posttreatment * In regards to chest pain, serial troponins ordered, cardiology consulted , stress echo negative, likely etiology is constipation, encouraged to use Gas-X * Regards to hypothyroid continue patient on Synthyroid, * Regards to history of dyslipidemia continue Lipitor Patient Condition at Discharge: Stable Plan - Discharge Summary New Discharge Prescriptions: New Simethicone Chew [Mylicon Chew] 40 mg PO QID 7 Days #28 tab Continue Levothyroxine Sodium [Synthroid] 125 mcg PO QAM Atorvastatin [Lipitor] 40 mg PO HS Vit C/E/Zn/Coppr/Lutein/Zeaxan [Preservision Areds 2 Softgel] 1 cap PO BID Aspirin 81 mg PO ONCE Docusate [Colace] 100 mg PO DAILY PRN PRN Reason: Constipation Cholecalciferol [Vitamin D3 (25 Mcg = 1000 Iu)] 25 mcg PO BID Discharge Medication List Atorvastatin [Lipitor] 40 mg PO HS 03/12/17 [History] Levothyroxine Sodium [Synthroid] 125 mcg PO QAM 03/12/17 [History] Vit C/E/Zn/Coppr/Lutein/Zeaxan [Preservision Areds 2 Softgel] 1 cap PO BID 02/13/18 [History] Aspirin 81 mg PO ONCE 06/11/23 [History] Cholecalciferol [Vitamin D3 (25 Mcg = 1000 Iu)] 25 mcg PO BID 06/11/23 [History] Docusate [Colace] 100 mg PO DAILY PRN 06/11/23 [History] Simethicone Chew [Mylicon Chew] 40 mg PO QID 7 Days #28 tab 06/11/23 [Rx] Follow up Appointment(s)/Referral(s): Willis Worthy MD [Primary Care Provider] - 1-2 days Discharge Disposition: HOME SELF-CARE
[2023-06-11 14:49] VITALS: BP 141/89; PULSE 58; RESP 17
--- NOTE | 2023-06-11 17:42 | CA ---
Transthoracic Echo Report Name: Emiliano Low Age: 77 Gender: M : 1945 Exam Date: 06/11/2023 08:54 Exam Location: [place] [facility] Ht (in): 66 Wt (lb): 185 Ordering Physician: Zoë Robles DO Attending/Referring Phys: [id number] Drilling Assistant Belkis Ferris [facility] Procedure CPT: Indications: Chest Pain Cardiac Hx: Technical Quality: Fair Contrast 1: Total Dose (mL): Contrast 2: Total Dose (mL): MEASUREMENTS (Male / Female) Normal Values 2D ECHO LV Diastolic Diameter PLAX 4.7 cm 4.2 - 5.9 / 3.9 - 5.3 cm LV Systolic Diameter PLAX 3.2 cm IVS Diastolic Thickness 1.0 cm 0.6 - 1.0 / 0.6 - 0.9 cm LVPW Diastolic Thickness 1.1 cm 0.6 - 1.0 / 0.6 - 0.9 cm LV Relative Wall Thickness 0.4 LVOT Diameter 2.0 cm Ascending Aorta Diameter 3.2 cm M-MODE Aortic Root Diameter MM 2.7 cm LA Systolic Diameter MM 3.9 cm LA Ao Ratio MM 1.5 AV Cusp Separation MM 2.2 cm DOPPLER AV Peak Velocity 137.5 cm/s AV Peak Gradient 7.6 mmHg AV Mean Velocity 89.4 cm/s AV Mean Gradient 3.8 mmHg AV Velocity Time Integral 30.1 cm LVOT Peak Velocity 94.6 cm/s LVOT Peak Gradient 3.6 mmHg LVOT Velocity Time Integral 22.0 cm LVOT Stroke Volume 70.5 cm??? LVOT Stroke Volume Index 36.4 ml/m??? LVOT Cardiac Index 1901.2 cm???/min???m??? AV Area Cont Eq vti 2.3 cm??? AV Area Cont Eq pk 2.2 cm??? Mitral E Point Velocity 68.4 cm/s Mitral A Point Velocity 85.5 cm/s Mitral E to A Ratio 0.8 MV Deceleration Time 183.5 ms LV E' Lateral Velocity 9.5 cm/s Mitral E to LV E' Lateral Ratio 7.2 LV E' Septal Velocity 8.1 cm/s Mitral E to LV E' Septal Ratio 8.5 TR Peak Velocity 224.6 cm/s TR Peak Gradient 20.2 mmHg Right Atrial Pressure 3.0 mmHg Pulmonary Artery Systolic Pressu 23.2 mmHg Right Ventricular Systolic Press 23.2 mmHg FINDINGS Left Ventricle Mildly increased posterior wall thickness. Left ventricular cavity size normal. Normal left ventricular systolic function with no obvious regional wall motion abnormalities. Left ventricular ejection fraction is estimated at 55-60%. Right Ventricle Mild right ventricular dilatation. Right Atrium Normal right atrial size. Left Atrium Mild left atrial dilatation. Mitral Valve Structurally normal mitral valve. Mild mitral regurgitation. Aortic Valve Trileaflet aortic valve. No aortic valve stenosis or regurgitation. Tricuspid Valve Structurally normal tricuspid valve. Trace tricuspid regurgitation. Pulmonic Valve Structurally normal pulmonic valve. No pulmonic stenosis. Pericardium No pericardial effusion. Aorta Normal size aortic root and proximal ascending aorta. CONCLUSIONS Left ventricular ejection fraction is estimated at 55-60%. Normal left ventricular systolic function with no obvious regional wall motion abnormalities. Mild concentric LV No significant valvular dysfunction No significant chamber size abnormality No pericardial effusion Previewed by: Dr Cr Hammond (Electronically Signed) Final Date: 11 June 2023 17:41
[2023-06-11] MEDS ORDERED: ATORVASTATIN 40 MG TAB PO SCH (21:00)
[2023-06-11] MEDS ORDERED: HEPARIN SODIUM,PORCINE 5,000 UNIT/ML 1 ML VIAL SQ SCH (21:00)
[2023-06-12] MEDS ORDERED: ASPIRIN 325 MG TAB PO SCH (09:00)
== END 2023-06-11 14:31 | disposition home or self-care (01) ==
LOC: EC 03:34 → 6NMEDSUR 04:53
PROVIDERS: ADMIT Hospitalist; ATTEND Hospitalist
DX: R07.9 Chest pain, unspecified (principal); E78.5 Hyperlipidemia, unspecified; G47.30 Sleep apnea, unspecified; N40.0 Benign prostatic hyperplasia without lower urinary tract symptoms; E03.9 Hypothyroidism, unspecified; Z85.46 Personal history of malignant neoplasm of prostate; Z92.3 Personal history of irradiation; Z79.890 Hormone replacement therapy; Z79.899 Other long term (current) drug therapy; Z88.0 Allergy status to penicillin
CPT/HCPCS: 99285; 36415; 93005; 93306; 93351; 83880; 80053; 83690; 83735; 84484; 85025; 85610; 85730; 71046; 74018; G0378

== ENCOUNTER 2023-06-13 17:08 | Inpatient (IN) | payer OTHER, MEDICARE ==
--- NOTE | 2023-06-13 17:38 | ED ---
Weakness HPI - General Source: patient, RN notes reviewed Mode of arrival: ambulatory Limitations: no limitations - History of Present Illness MD Complaint: generalized weakness <Isabela Moore - Last Filed: 06/13/23 17:36> - General Source: RN notes reviewed, old records reviewed Mode of arrival: ambulatory Limitations: no limitations - History of Present Illness MD Complaint: generalized weakness, lack of energy, difficulty walking -: days(s) Location: generalized Severity: moderate Severity scale (1-10): 5 Consistency: intermittent Improves with: none Worsens with: none Context: recent illness, history of similar Associated Symptoms: chest pain, confusion <Cristhian Ramsey - Last Filed: 06/25/23 21:39> - General Chief complaint: Weakness Stated complaint: Weakness Time Seen by Provider: 06/13/23 17:36 - History of Present Illness Initial comments: This is a 77 year old male who presents to the emergency department for weakness. States that the symptoms began about 2 days ago. Patient states that he was discharged from this facility 2 days ago as well for chest pain. His c ardiac workup was negative at that time and he was advised that symptoms are likely related to constipation. (Isabela Moore) This is a 77-year-old male to ER for evaluation of weakness with recent discharge for chest pain. Patient still having symptoms here in the ER of [facility] and presents to the ER for evaluation today. Found to have fever (Cristhian Ramsey) - Related Data Home Medications Medication Instructions Recorded Confirmed Atorvastatin [Lipitor] 40 mg PO HS 03/12/17 06/14/23 Vit C/E/Zn/Coppr/Lutein/Zeaxan 1 cap PO BID 02/13/18 06/14/23 [Preservision Areds 2 Softgel] Cholecalciferol [Vitamin D3 (25 25 mcg PO BID 06/11/23 06/14/23 Mcg = 1000 Iu)] Docusate [Colace] 100 mg PO DAILY PRN 06/11/23 06/14/23 Levothyroxine Sodium [Synthroid] 125 mcg PO DAILY 06/14/23 06/14/23 Previous Rx's Medication Instructions Recorded Simethicone Chew [Mylicon Chew] 40 mg PO QID 7 Days #28 tab 06/11/23 Acetaminophen Tab [Tylenol] 650 mg PO Q6HR PRN tab 06/18/23 Apixaban [Eliquis] 5 mg PO BID 30 Days #60 tab 06/18/23 Levofloxacin [Levaquin] 750 mg PO DAILY 7 Days #7 tab 06/18/23 Metoprolol Succinate (ER) [Toprol 25 mg PO DAILY #30 tab 06/18/23 XL] Nitroglycerin Sl Tabs [Nitrostat] 0.4 mg SUBLINGUAL Q5M PRN #20 tab 06/18/23 Pantoprazole [Protonix] 40 mg PO DAILY #30 tab 06/18/23 Allergies Allergy/AdvReac Type Severity Reaction Status Date / Time bee venom protein (honey bee) Allergy Swelling Verified 06/14/23 10:50 Penicillins Allergy Anaphylaxis Verified 06/14/23 10:50 Review of Systems ROS Other: All systems not noted in ROS Statement are negative. <Isabela Moore - Last Filed: 06/13/23 17:36> ROS Other: All systems not noted in ROS Statement are negative. <Cristhian Ramsey - Last Filed: 06/25/23 21:39> ROS Statement: Those systems with pertinent positive or pertinent negative responses have been documented in the HPI. Past Medical History Past Medical History: Cancer, Hyperlipidemia, Osteoarthritis (OA), Sleep A pnea/CPAP/BIPAP, Thyroid Disorder Additional Past Medical History / Comment(s): possible sleep apnea-no tx., enlarged prostate, hx. 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 vasectomy, cataracts removed,colonoscopy Past Anesthesia/Blood Transfusion Reactions: No Reported Reaction Past Psychological History: No Psychological Hx Reported Smoking Status: Never smoker Past Alcohol Use History: None Reported Past Drug Use History: None Reported - Past Family History Mother Additional Family Medical History / Comment(s): CABG Father Family Medical History: Cancer Brother(s) Family Medical History: Cancer, Diabetes Mellitus Additional Family Medical History / Comment(s): kidney <Isabela Moore - Last Filed: 06/13/23 17:36> General Exam Limitations: no limitations <Isabela Moore - Last Filed: 06/13/23 17:36> General appearance: anxious Head exam: Present: atraumatic, normocephalic, normal inspection Eye exam: Present: normal appearance, PERRL, EOMI. Absent: scleral icterus, conjunctival injection, periorbital swelling ENT exam: Present: normal exam, mucous membranes moist Neck exam: Present: normal inspection. Absent: tenderness, meningismus, lymphadenopathy Respiratory exam: Present: normal lung sounds bilaterally. Absent: respiratory distress, wheezes, rales, rhonchi, stridor Cardiovascular Exam: Present: regular rate, normal rhythm, normal heart sounds. Absent: systolic murmur, diastolic murmur, rubs, gallop, clicks GI/Abdominal exam: Present: soft, normal bowel sounds. Absent: distended, tenderness, guarding, rebound, rigid Extremities exam: Present: normal inspection, full ROM, normal capillary refill. Absent: tenderness, pedal edema, joint swelling, calf tenderness Back exam: Present: normal inspection Neurological exam: Present: alert, oriented X3, CN II-XII intact Psychiatric exam: Present: normal affect, normal mood Skin exam: Present: warm, dry, intact, normal color. Absent: rash <Cristhian Ramsey - Last Filed: 06/25/23 21:39> - General Exam Comments Initial Comments: Visual Physical Exam Vital signs reviewed General: Well-appearing, nontoxic, no acute distress. Head: Normocephalic, atraumatic Eyes: PERRLA, EOMI ENT: Airway patent Chest: Nonlabored breathing Skin: No visual rash, normal skin tone Neuro: Alert and oriented 3 Musculoskeletal: No gross abnormalities (Vogley,Isabela) Course <Cristhian Ramsey - Last Filed: 06/25/23 21:39> Vital Signs 06/13/23 06/13/23 06/13/23 17:19 20:05 21:14 Temperature 100 F H 98.9 F Pulse Rate 105 H 150 H 78 Respiratory 18 16 14 Rate Blood Pressure 117/64 116/67 91/61 O2 Sat by Pulse 96 95 94 L Oximetry 06/13/23 06/14/23 06/14/23 23:03 00:47 04:00 Temperature 98.1 F Pulse Rate 82 68 71 Respiratory 16 17 19 Rate Blood Pressure 108/56 103/59 106/59 O2 Sat by Pulse 95 93 L 93 L Oximetry 06/14/23 06/14/23 06/14/23 04:30 05:49 07:25 Temperature Pulse Rate 70 71 75 Respiratory 11 L 16 20 Rate Blood Pressure 111/57 114/61 114/61 O2 Sat by Pulse 93 L 95 93 L Oximetry 06/14/23 06/14/23 06/14/23 08:37 10:00 11:00 Temperature Pulse Rate 70 73 70 Respiratory 16 16 16 Rate Blood Pressure 117/58 130/64 130/60 O2 Sat by Pulse 94 L 94 L 95 Oximetry 06/14/23 06/14/23 06/14/23 14:00 16:00 18:30 Temperature 99.6 F Pulse Rate 68 82 71 Respiratory 20 20 16 Rate Blood Pressure 119/59 119/59 115/58 O2 Sat by Pulse 94 L 94 L 94 L Oximetry 06/14/23 06/14/23 19:43 20:59 Temperature 99.5 F Pulse Rate 75 71 Respiratory 17 17 Rate Blood Pressure 114/58 132/75 O2 Sat by Pulse 92 L 94 L Oximetry - Reevaluation(s) Reevaluation #1: Records reviewed (Cristhian Ramsey) Reevaluation #2: Patient has no improvement in symptoms here in the ER (Cristhian Ramsey) Reevaluation #3: Patient informed of results questions answered (Cristhian Ramsey) Reevaluation #4: Was pt. sent in by a medical professional or institution (, PA, SHIP RIGGER APPRENTICE, urgent care, hospital, or halfway...) When possible be specific @ -no Did you speak to anyone other than the patient for history (EMS, parent, family, police, friend...)? What history was obtained from this source @ -no Did you review nursing and triage notes (agree or disagree)? Why? @ -agree Are old charts reviewed (outside hosp., previous admission, EMS record, old EKG, old radiological studies, urgent care reports/EKG's, halfway records)? Report findings @ -yes Differential Diagnosis (chest pain, altered mental status, abdominal pain women, abdominal pain men, vaginal bleeding, weakness, fever, dyspnea, syncope, headache, dizziness, GI bleed, back pain, seizure, CVA, palpatations, mental health, musculoskeletal)? @ -prior EKG interpreted by me (3pts min.). @ -yes X-rays interpreted by me (1pt min.). @ -yes negative for acute disease CT interpreted by me (1pt min.). @ -no U/S interpreted by me (1pt. min.). @ -no What testing was considered but not performed or refused? (CT, X-rays, U/S, labs)? Why? @ -none What meds were considered but not given or refused? Why? @ -none Did you discuss the management of the patient with other professionals (pr ofessionals i.e. , PA, SHIP RIGGER APPRENTICE, lab, RT, psych nurse, social security assessor, meeting facilitator, teacher, sustainability officer, outsole caser)? Give summary @ -no Was smoking cessation discussed for >3mins.? @ -no Was critical care preformed (if so, how long)? @ -no Were there social determinants of health that impacted care today? How? (Homelessness, low income, unemployed, alcoholism, drug addiction, transportation, low edu. Level, literacy, decrease access to med. care, skilled nursing, rehab)? @ -none Was there de-escalation of care discussed even if they declined (Discuss DNR or withdrawal of care, Hospice)? DNR status @ -no What co-morbidities impacted this encounter? (DM, HTN, Smoking, COPD, CAD, Cancer, CVA, ARF, Chemo, Hep., AIDS, mental health diagnosis, sleep apnea, morbid obesity)? @ -none Was patient admitted / discharged? Hospital course, mention meds given and route, prescriptions, significant lab abnormalities, going to OR and other pertinent info. @ - 78 male with weakness and fatigue for a few days now. Patient does have recent inpatient hospital admission for persistent weakness here in the ER with chest pain. Patient does have fever and will admit for the possible finding of source of fever Admitted Undiagnosed new problem with uncertain prognosis? @ -no Drug Therapy requiring intensive monitoring for toxicity (Heparin, Nitro, Insulin, Cardizem)? @ -no Were any procedures done? @ -no Diagnosis/symptom? @ -Chest pain weakness fever Acute, or Chronic, or Acute on Chronic? @ -Acute Uncomplicated (without systemic symptoms) or Complicated (systemic symptoms)? @ -Complicated Side effects of treatment? @ -no Exacerbation, Progression, or Severe Exacerbation? @ -exacerbation Poses a threat to life or bodily function? How? (Chest pain, [place], [place], pneumonia, PE, COPD, DKA, ARF, appy, cholecystitis, CVA, Diverticulitis, Homicidal, Suicidal, threat to staff... and all critical care pts) @ -yes with extremes of age (Cristhian Ramsey) Reevaluation #5: Differential Weakness: Hypoglycemia, shock, sepsis, hyponatremia, anemia, infection, [place], ETOH, adverse medicine reaction, overdose, stroke, this is not meant to be an all-inclusive list. (Cristhian Ramsey) - Consultations Consultation #1: Spoke with many physicians who agreed to admit this patient (Cristhian Ramsey) EKG Findings - EKG Comments: EKG Findings:: EKG is A-fib 140 QRS 79 QTc 340 <Cristhian Ramsey - Last Filed: 06/25/23 21:39> Medical Decision Making <Isabela Moore - Last Filed: 06/13/23 17:36> - Lab Data Result diagrams: 06/18/23 08:30 06/18/23 08:30 - EKG Data -: EKG Interpreted by Me - Radiology Data Radiology results: report reviewed (Chest x-ray is negative for acute disease), image reviewed <Cristhian Ramsey - Last Filed: 06/25/23 21:39> - Medical Decision Making I performed the QuickNote portion of this chart. Signed Isabela Moore PA-C. (Isabela Moore) 78 male with weakness and fatigue for a few days now. Patient does have recent inpatient hospital admission for persistent weakness here in the ER with chest pain. Patient does have fever and will admit for the possible finding of source of fever (Cristhian Ramsey) - Lab Data Lab Results 06/13/23 06/13/23 06/13/23 Range/Units 17:45 17:45 17:45 WBC 18.4 H (3.8-10.6) k/uL RBC 4.86 (4.30-5.90) m/uL Hgb 15.6 (13.0-17.5) gm/dL Hct 45.3 (39.0-53.0) % MCV 93.3 (80.0-100.0) fL MCH 32.2 (25.0-35.0) pg MCHC 34.5 (31.0-37.0) g/dL RDW 12.9 (11.5-15.5) % Plt Count 234 (150-450) k/uL MPV 7.5 Neutrophils % 84 % Lymphocytes % 9 % Monocytes % 5 % Eosinophils % 0 % Basophils % 0 % Neutrophils # 15.5 H (1.3-7.7) k/uL Lymphocytes # 1.6 (1.0-4.8) k/uL Monocytes # 0.9 (0-1.0) k/uL Eosinophils # 0.1 (0-0.7) k/uL Basophils # 0.0 (0-0.2) k/uL PT 10.6 (10.0-12.5) sec INR 1.0 (<1.2) APTT 24.5 (22.0-30.0) sec Sodium (137-145) mmol/L Potassium (3.5-5.1) mmol/L Chloride (98-107) mmol/L Carbon Dioxide (22-30) mmol/L Anion Gap mmol/L BUN (9-20) mg/dL Creatinine (0.66-1.25) mg/dL Est GFR (CKD-EPI)AfAm (>60 ml/min/1.73 sqM) Est GFR (CKD-EPI)NonAf (>60 ml/min/1.73 sqM) Glucose (74-99) mg/dL Plasma Lactic Acid Anselmo (0.7-2.0) mmol/L Calcium (8.4-10.2) mg/dL Magnesium (1.6-2.3) mg/dL Total Bilirubin (0.2-1.3) mg/dL AST (17-59) U/L ALT (4-49) U/L Alkaline Phosphatase (38-126) U/L Troponin I (0.000-0.034) ng/mL Total Protein (6.3-8.2) g/dL Albumin (3.5-5.0) g/dL Urine Color Yellow Urine Appearance Cloudy (Clear) Urine pH 5.5 (5.0-8.0) Ur Specific [place] 1.029 (1.001-1.035) Urine Protein 1+ H (Negative) Urine Glucose (UA) Negative (Negative) Urine Ketones Negative (Negative) Urine Blood Small H (Negative) Urine Nitrite Negative (Negative) Urine Bilirubin Negative (Negative) Urine Urobilinogen 2.0 (<2.0) mg/dL Ur Leukocyte Esterase Negative (Negative) Urine RBC 3 (0-5) /hpf Urine WBC 2 (0-5) /hpf Ur Squamous Epith Cells 1 (0-4) /hpf Amorphous Sediment Rare H (None) /hpf Urine Mucus Many H (None) /hpf Influenza Type A (PCR) (Not Detectd) Influenza Type B (PCR) (Not Detectd) Urine Legionella Ag (Negative) RSV (PCR) (Not Detectd) SARS-CoV-2 (PCR) (Not Detectd) 06/13/23 06/13/23 06/13/23 Range/Units 17:45 17:45 17:45 WBC (3.8-10.6) k/uL RBC (4.30-5.90) m/uL Hgb (13.0-17.5) gm/dL Hct (39.0-53.0) % MCV (80.0-100.0) fL MCH (25.0-35.0) pg MCHC (31.0-37.0) g/dL RDW (11.5-15.5) % Plt Count (150-450) k/uL MPV Neutrophils % % Lymphocytes % % Monocytes % % Eosinophils % % Basophils % % Neutrophils # (1.3-7.7) k/uL Lymphocytes # (1.0-4.8) k/uL Monocytes # (0-1.0) k/uL Eosinophils # (0-0.7) k/uL Basophils # (0-0.2) k/uL PT (10.0-12.5) sec INR (<1.2) APTT (22.0-30.0) sec Sodium 134 L (137-145) mmol/L Potassium 4.4 (3.5-5.1) mmol/L Chloride 104 (98-107) mmol/L Carbon Dioxide 20 L (22-30) mmol/L Anion Gap 10 mmol/L BUN 18 (9-20) mg/dL Creatinine 0.76 (0.66-1.25) mg/dL Est GFR (CKD-EPI)AfAm >90 (>60 ml/min/1.73 sqM) Est GFR (CKD-EPI)NonAf 88 (>60 ml/min/1.73 sqM) Glucose 178 H (74-99) mg/dL Plasma Lactic Acid Anselmo 1.8 (0.7-2.0) mmol/L Calcium 8.4 (8.4-10.2) mg/dL Magnesium 2.5 H (1.6-2.3) mg/dL Total Bilirubin 0.7 (0.2-1.3) mg/dL AST 31 (17-59) U/L ALT 34 (4-49) U/L Alkaline Phosphatase 137 H (38-126) U/L Troponin I 0.022 (0.000-0.034) ng/mL Total Protein 6.4 (6.3-8.2) g/dL Albumin 3.6 (3.5-5.0) g/dL Urine Color Urine Appearance (Clear) Urine pH (5.0-8.0) Ur Specific [place] (1.001-1.035) Urine Protein (Negative) Urine Glucose (UA) (Negative) Urine Ketones (Negative) Urine Blood (Negative) Urine Nitrite (Negative) Urine Bilirubin (Negative) Urine Urobilinogen (<2.0) mg/dL Ur Leukocyte Esterase (Negative) Urine RBC (0-5) /hpf Urine WBC (0-5) /hpf Ur Squamous Epith Cells (0-4) /hpf Amorphous Sediment (None) /hpf Urine Mucus (None) /hpf Influenza Type A (PCR) (Not Detectd) Influenza Type B (PCR) (Not Detectd) Urine Legionella Ag (Negative) RSV (PCR) (Not Detectd) SARS-CoV-2 (PCR) (Not Detectd) 06/13/23 06/13/23 Range/Units 17:45 17:45 WBC (3.8-10.6) k/uL RBC (4.30-5.90) m/uL Hgb (13.0-17.5) gm/dL Hct (39.0-53.0) % MCV (80.0-100.0) fL MCH (25.0-35.0) pg MCHC (31.0-37.0) g/dL RDW (11.5-15.5) % Plt Count (150-450) k/uL MPV Neutrophils % % Lymphocytes % % Monocytes % % Eosinophils % % Basophils % % Neutrophils # (1.3-7.7) k/uL Lymphocytes # (1.0-4.8) k/uL Monocytes # (0-1.0) k/uL Eosinophils # (0-0.7) k/uL Basophils # (0-0.2) k/uL PT (10.0-12.5) sec INR (<1.2) APTT (22.0-30.0) sec Sodium (137-145) mmol/L Potassium (3.5-5.1) mmol/L Chloride (98-107) mmol/L Carbon Dioxide (22-30) mmol/L Anion Gap mmol/L BUN (9-20) mg/dL Creatinine (0.66-1.25) mg/dL Est GFR (CKD-EPI)AfAm (>60 ml/min/1.73 sqM) Est GFR (CKD-EPI)NonAf (>60 ml/min/1.73 sqM) Glucose (74-99) mg/dL Plasma Lactic Acid Anselmo (0.7-2.0) mmol/L Calcium (8.4-10.2) mg/dL Magnesium (1.6-2.3) mg/dL Total Bilirubin (0.2-1.3) mg/dL AST (17-59) U/L ALT (4-49) U/L Alkaline Phosphatase (38-126) U/L Troponin I (0.000-0.034) ng/mL Total Protein (6.3-8.2) g/dL Albumin (3.5-5.0) g/dL Urine Color Urine Appearance (Clear) Urine pH (5.0-8.0) Ur Specific [place] (1.001-1.035) Urine Protein (Negative) Urine Glucose (UA) (Negative) Urine Ketones (Negative) Urine Blood (Negative) Urine Nitrite (Negative) Urine Bilirubin (Negative) Urine Urobilinogen (<2.0) mg/dL Ur Leukocyte Esterase (Negative) Urine RBC (0-5) /hpf Urine WBC (0-5) /hpf Ur Squamous Epith Cells (0-4) /hpf Amorphous Sediment (None) /hpf Urine Mucus (None) /hpf Influenza Type A (PCR) Not Detected (Not Detectd) Influenza Type B (PCR) Not Detected (Not Detectd) Urine Legionella Ag Negative (Negative) RSV (PCR) Not Detected (Not Detectd) SARS-CoV-2 (PCR) Not Detected (Not Detectd) Critical Care Time Critical Care Time: Yes Total Critical Care Time: 31 <Cristhian Ramsey - Last Filed: 06/25/23 21:39> Disposition <Isabela Moore - Last Filed: 06/13/23 17:36> Time of Disposition: 02:00 <Cristhian Ramsey - Last Filed: 06/25/23 21:39> Clinical Impression: Chest pain, A-fib, Fever Disposition: ADMITTED IP TO THIS HOSP Condition: Fair
[2023-06-13 18:29] LABS: Basophils % (A) 0 %; Eosinophils # (A) 0.1 k/uL (0-0.7); Eosinophils % (A) 0 %; HCT 45.3 % (39.0-53.0); HGB 15.6 gm/dL (13.0-17.5); Lymphocytes # (A) 1.6 k/uL (1.0-4.8); Lymphocytes % (A) 9 %; MCH 32.2 pg (25.0-35.0); MCHC 34.5 g/dL (31.0-37.0); MCV 93.3 fL (80.0-100.0); Mean Platelet Volume 7.5; Monocytes # (A) 0.9 k/uL (0-1.0); Monocytes % (A) 5 %; Neutrophils # (A) 15.5 k/uL (1.3-7.7); Neutrophils % (A) 84 %; Platelet Count 234 k/uL (150-450); RBC 4.86 m/uL (4.30-5.90); RDW 12.9 % (11.5-15.5); WBC 18.4 k/uL (3.8-10.6)
[2023-06-13 18:38] LABS: Partial Thromboplastin Time 24.5 sec (22.0-30.0); Prothrombin Time 10.6 sec (10.0-12.5)
--- NOTE | 2023-06-13 18:56 | XR ---
EXAMINATION TYPE: XR chest 2V DATE OF EXAM: 06/13/2023 COMPARISON: 06/11/2023 HISTORY: Shortness of breath TECHNIQUE: Frontal and lateral views of the chest are obtained. FINDINGS: Scattered senescent parenchymal changes noted. Hyperinflation compatible with COPD. No evidence for infiltrate. No evidence for atelectasis. Heart size is stable. Mediastinal structures are stable and grossly unremarkable. No evidence for hilar prominence. Degenerative changes dorsal spine. IMPRESSION: 1. No evidence for acute pulmonary disease.
[2023-06-13 18:57] LABS: ALT 34 U/L (4-49); AST 31 U/L (17-59); African American GFR (CKD) >90 (>60 ml/min/1.73 sqM); Albumin 3.6 g/dL (3.5-5.0); Alkaline Phosphatase 137 U/L (38-126); Anion Gap 10 mmol/L; Blood Urea Nitrogen 18 mg/dL (9-20); Calcium 8.4 mg/dL (8.4-10.2); Carbon Dioxide 20 mmol/L (22-30); Chloride 104 mmol/L (98-107); Glucose 178 mg/dL (74-99); Magnesium 2.5 mg/dL (1.6-2.3); Non-African American GFR(CKD) 88 (>60 ml/min/1.73 sqM); Potassium 4.4 mmol/L (3.5-5.1); Sodium 134 mmol/L (137-145); Total Bilirubin 0.7 mg/dL (0.2-1.3); Total Protein 6.4 g/dL (6.3-8.2)
[2023-06-13] MEDS ORDERED: PNEUMONIA PROTOCOL UTILIZED 1 EACH MISC PO PRN (19:01)
[2023-06-13 19:26] LABS: Amorphous Sediment,Urine Rare /hpf; Appearance,Urine Cloudy (Clear); Bilirubin,Urine Negative (Negative); Blood,Urine Small (Negative); Color,Urine Yellow; Glucose,Urine (UA) Negative (Negative); Ketones,Urine Negative (Negative); Leukocyte Esterase,Urine Negative (Negative); Mucus,Urine Many /hpf; Nitrite,Urine Negative (Negative); PH, Urine 5.5 (5.0-8.0); Protein,Urine 1+ (Negative); RBC,Urine 3 /hpf (0-5); Specific Gravity,Urine 1.029 (1.001-1.035); Squamous Epithelial Cell,Urine 1 /hpf (0-4); WBC,Urine 2 /hpf (0-5)
[2023-06-13] MEDS: IBUPROFEN 800 MG TAB PO STA (19:55)
[2023-06-13] MEDS: ACETAMINOPHEN TAB 500 MG TAB PO STA (19:56)
[2023-06-13] MEDS: SODIUM CHLORIDE 0.9% 1,000 ML IV STA (20:01)
[2023-06-13] MEDS: SODIUM CHLORIDE 0.9% 1,000 ML IV SCH (21:16)
[2023-06-13] MEDS: AZITHROMYCIN 500 MG in SODIUM CHLORIDE 0.9% 250 ML IVPB STA (22:00)
[2023-06-14] MEDS ORDERED: NITROGLYCERIN SL TABS 0.4 MG TAB SUBLINGUAL PRN (02:07)
[2023-06-14] MEDS: DILTIAZEM DRIP BOLUS FROM BAG 1 MG SOLN IV ONE (03:37)
[2023-06-14] MEDS: DILTIAZEM 125 MG in SODIUM CHLORIDE 0.9% 100 ML IV SCH (03:37)
[2023-06-14] MEDS: AZITHROMYCIN 500 MG TAB PO SCH (08:36)
[2023-06-14] MEDS ORDERED: NALOXONE 0.4 MG/ML 1 ML VIAL IV PRN (10:07)
[2023-06-14] MEDS ORDERED: ACETAMINOPHEN TAB 325 MG TAB PO PRN (10:07)
[2023-06-14] MEDS ORDERED: ONDANSETRON 4 MG/2 ML VIAL IVP PRN (10:07)
[2023-06-14] MEDS: HEPARIN SODIUM 1,000 UN/ML (10ML VL) IV ONE (10:53)
[2023-06-14] MEDS: HEPARIN SOD,PORK IN 0.45% NACL 25,000 UNIT in 0.45% NACL 1 250ML.BAG IV SCH (10:54)
[2023-06-14] MEDS: LEVOTHYROXINE 112 MCG TAB PO SCH (11:33)
--- NOTE | 2023-06-14 12:47 | P.CRDCN ---
History of Present Illness Consult date: 06/14/23 Consult reason: atrial fibrillation Chief complaint: weakness, palpitations, fever, fatigue History of present illness: History of present illness: Patient is a pleasant 77-year-old male with significant past medical history of hyperlipidemia and hypothyroidism who presented to the emergency department with complaints of generalized weakness, fevers, fatigue, palpitations. He was found to be in A-fib with RVR. This is a new diagnosis. He was recently seen 06/11/2023 with complaints of chest pain. He did have echocardiogram 06/11/2023 which showed EF 55-60%. Stress echo was unrevealing. He was discharged home. Yesterday he was feeling heart palpitations, fatigue, generalized weakness and returned back to the emergency department. EG shows atrial fibrillation 140 bpm. Chest x-ray with no acute findings. Labs reviewed: WBC 18.4, sodium 134, potassium 4.4, creatinine 0.76, troponin negative x 2. He did convert back to the normal sinus rhythm prior to initiation of Cardizem drip and is feeling better with more energy. He is very active at baseline. He did not history of hypertension, stroke, RI, CHF, diabetes, blood clots. Any chest pain or pressure. REVIEW OF SYSTEMS: No fever or chills. No cough or expectoration. No diaphoresis. Patient denies headache, dizziness, blurred vision, double vision. Patient denies any stomach discomfort. No nausea, vomiting. No hematochezia. No hematemesis. Denies any black stools or blood in his stools. Denies dysuria or hematuria. No numbness. No chest pain or pressure. Reports fatigue and generalized weakness. PHYSICAL EXAMINATION: This is a 77-year-old male in no apparent distress at the time of my examination. HEENT: Head is atraumatic, normocephalic. Pupils are equal, round. Sclerae anicteric. Conjunctivae are clear. Mucous membranes of the mouth are moist. Neck is supple. There is no jugular venous distention. No carotid bruit is heard. CHEST EXAMINATION: Lungs are clear to auscultation. No chest wall tenderness is noted on palpation or with deep breathing. HEART EXAMINATION: Heart regular rate and rhythm. S1, S2 heard. No murmurs, g allops or rub. ABDOMEN: Soft, nontender. Bowel sounds are heard. EXTREMITIES: 2+ peripheral pulses with no evidence of peripheral edema and no calf tenderness noted. NEUROLOGIC EXAMINATION: Patient is awake, alert and oriented x3. IMPRESSION AND PLAN: New onset atrial fibrillation, paroxysmal; currently in sinus rhythm Hyperlipidemia Hypothyroidism Generalized weakness Leukocytosis PLAN: New onset atrial fibrillation, [id number] score is 2 for age of 77, start anticoagulation for stroke risk reduction, recommend transitioning to Eliquis 5mg po BID. Start Toprol 25mg po daily. Check thyroid function. Recent workup with echo and stress echo 4 days ago was unrevealing. OK to discharge home from cardiology standpoint. Follow up in clinic in 1 week. I am dictating on behalf of Dr. Selvin Hartlye's history/physical and assessment/plan. Past Medical History Past Medical History: Cancer, Hyperlipidemia, Osteoarthritis (OA), Sleep Apnea/CPAP/BIPAP, Thyroid Disorder Additional Past Medical History / Comment(s): possible sleep apnea-no tx., enlarged prostate, hx. colon polyps prostate ca 2020 radiation tx and clear History of Any Multi-Drug Resistant Organisms: None Reported Additional Past Surgical History / Comment(s): lt eye vitrectomy( july 2016).vasectomy, cataracts removed,colonoscopy Past Anesthesia/Blood Transfusion Reactions: No Reported Reaction Past Psychological History: No Psychological Hx Reported Smoking Status: Never smoker Past Alcohol Use History: None Reported Past Drug Use History: None Reported - Past Family History Mother Additional Family Medical History / Comment(s): CABG Father Family Medical History: Cancer Brother(s) Family Medical History: Cancer, Diabetes Mellitus Additional Family Medical History / Comment(s): kidney Medications and Allergies Home Medications Medication Instructions Recorded Confirmed Type Atorvastatin [Lipitor] 40 mg PO HS 03/12/17 06/14/23 History Vit C/E/Zn/Coppr/Lutein/Zeaxan 1 cap PO BID 02/13/18 06/14/23 History [Preservision Areds 2 Softgel] Cholecalciferol [Vitamin D3 (25 25 mcg PO BID 06/11/23 06/14/23 History Mcg = 1000 Iu)] Docusate [Colace] 100 mg PO DAILY PRN 06/11/23 06/14/23 History Simethicone Chew [Mylicon Chew] 40 mg PO QID 7 Days #28 tab 06/11/23 06/14/23 Rx Levothyroxine Sodium [Synthroid] 125 mcg PO DAILY 06/14/23 06/14/23 History Allergies Allergy/AdvReac Type Severity Reaction Status Date / Time bee venom protein (honey bee) Allergy Swelling Verified 06/14/23 10:50 Penicillins Allergy Anaphylaxis Verified 06/14/23 10:50 Physical Exam Vitals: Vital Signs Temp Pulse Resp BP Pulse Ox 06/14/23 08:37 70 16 117/58 94 L 06/14/23 07:25 75 20 114/61 93 L 06/14/23 05:49 71 16 114/61 95 06/14/23 04:30 70 11 L 111/57 93 L 06/14/23 04:00 71 19 106/59 93 L 06/14/23 00:47 98.1 F 68 17 103/59 93 L 06/13/23 23:03 82 16 108/56 95 06/13/23 21:14 98.9 F 78 14 91/61 94 L 06/13/23 20:05 150 H 16 116/67 95 06/13/23 17:19 100 F H 105 H 18 117/64 96 Intake and Output 06/13/23 06/14/23 06/14/23 22:59 06:59 14:59 Other: Weight 81.647 kg Results 06/13/23 17:45 06/13/23 17:45 Cardiac Enzymes 06/13/23 06/13/23 06/14/23 Range/Units 17:45 17:45 03:36 AST 31 (17-59) U/L Troponin I 0.022 0.014 (0.000-0.034) ng/mL 06/14/23 Range/Units 08:26 AST (17-59) U/L Troponin I <0.012 (0.000-0.034) ng/mL Coagulation 06/13/23 Range/Units 17:45 PT 10.6 (10.0-12.5) sec APTT 24.5 (22.0-30.0) sec CBC 06/13/23 Range/Units 17:45 WBC 18.4 H (3.8-10.6) k/uL RBC 4.86 (4.30-5.90) m/uL Hgb 15.6 (13.0-17.5) gm/dL Hct 45.3 (39.0-53.0) % Plt Count 234 (150-450) k/uL Comprehensive Metabolic Panel 06/13/23 Range/Units 17:45 Sodium 134 L (137-145) mmol/L Potassium 4.4 (3.5-5.1) mmol/L Chloride 104 (98-107) mmol/L Carbon Dioxide 20 L (22-30) mmol/L BUN 18 (9-20) mg/dL Creatinine 0.76 (0.66-1.25) mg/dL Glucose 178 H (74-99) mg/dL Calcium 8.4 (8.4-10.2) mg/dL AST 31 (17-59) U/L ALT 34 (4-49) U/L Alkaline Phosphatase 137 H (38-126) U/L Total Protein 6.4 (6.3-8.2) g/dL Albumin 3.6 (3.5-5.0) g/dL Current Medications Generic Name Dose Route Start Last Admin Trade Name Freq PRN Reason Stop Dose Admin Acetaminophen 650 mg 06/14/23 10:07 Acetaminophen Tab 325 Mg Tab PO Q6HR PRN Mild Pain or Fever > 100.5 Aspirin 325 mg 06/15/23 09:00 Aspirin 325 Mg Tab PO DAILY REANNA Atorvastatin Calcium 40 mg 06/14/23 21:00 Atorvastatin 40 Mg Tab PO HS REANNA Azithromycin 500 mg 06/14/23 09:00 06/14/23 08:36 Azithromycin 500 Mg Tab PO 06/15/23 09:01 500 mg DAILY REANNA Administration Protocol Ceftriaxone Sodium 2 gm/ 50 mls @ 100 mls/hr 06/14/23 09:00 06/14/23 08:36 Sodium Chloride IVPB 06/17/23 09:29 100 mls/hr Q24HR REANNA Administration Protocol Sodium Chloride 1,000 mls @ 130 mls/hr 06/13/23 19:15 06/14/23 03:38 Saline 0.9% IV 130 mls/hr .[id number] REANNA Administration Diltiazem HCl 125 mg/ Sodium 125 mls @ 5 mls/hr 06/14/23 02:30 06/14/23 03:37 Chloride IV Not Given .Q24H REANNA 5 MG/HR Levothyroxine Sodium 125 mcg 06/14/23 10:15 Levothyroxine 112 Mcg Tab PO QAM REANNA Miscellaneous Information 1 each 06/13/23 19:01 Pneumonia Protocol Utilized 1 Each Misc PO ONCE PRN Per Protocol Naloxone HCl 0.2 mg 06/14/23 10:07 Naloxone 0.4 Mg/Ml 1 Ml Vial IV Q2M PRN Opioid Reversal Nitroglycerin 0.4 mg 06/14/23 02:07 Nitroglycerin Sl Tabs 0.4 Mg Tab SUBLINGUAL Q5M PRN Chest Pain Intake and Output 06/13/23 06/14/23 06/14/23 22:59 06:59 14:59 Other: Weight 81.647 kg 06/13/23 17:45 06/13/23 17:45
--- NOTE | 2023-06-14 13:40 | P.HPIM ---
History of Present Illness H&P Date: 06/14/23 Chief Complaint: Fatigue * 77-year-old gentleman with past medical history significant for osteoarthritis, dyslipidemia history of prostate cancer presents to the emergency department with complaints of fatigue. Patient was recently discharged on 06/11/2023 admitted with chest pain workup was done including stress test that came back negative, ACS was ruled out during the h ospitalization patient had complained of epigastric discomfort and x-ray KUB was done which showed nonobstructive bowel gas pattern extensive stool burden was noted. Patient presents with worsening fatigue, workup initiated include WBC of 1818.4 hemoglobin 15.6 platelet count of 234 INR of 1, serum chemistry sodium 134 potassium 4.4, dioxide 20 BUN 18 creatinine 0.76 magnesium 2.5 urinalysis was done which was essentially negative for UTI, patient tested negative for influenza, COVID and RSV urine Legionella was negative. Upon admission suspected pneumonia however started on Rocephin and azithromycin 1 dose was given. * EKG obtained in ER showed new onset atrial fibrillation with rapid ventricle response heart rate in 140s. Patient was given 10 mg of IV Cardizem 1 L fluid bolus and started on Cardizem drip * Patient to be admitted to medical floor with consultation from cardiology REVIEW OF SYSTEMS: Fatigue CONSTITUTIONAL: Fatigue HEENT: No recent visual problems or hearing problems. Denied any sore throat. CARDIOVASCULAR: No chest pain, orthopnea, PND, no palpitations, no syncope. PULMONARY: No shortness of breath, no cough, no hemoptysis. GASTROINTESTINAL: No diarrhea, no nausea, no vomiting, no abdominal pain. NEUROLOGICAL: No headaches, no weakness, no numbness. HEMATOLOGICAL: Denies any bleeding or petechiae. GENITOURINARY: Denies any burning micturition, frequency, or urgency. MUSCULOSKELETAL/RHEUMATOLOGICAL: Denies any joint pain, swelling, or any muscle pain. ENDOCRINE: Denies any polyuria or polydipsia. PHYSICAL EXAMINATION: GENERAL: The patient is alert and oriented x3, ill appearance HEENT: Pupils are round and equally reacting to light. EOMI. CARDIOVASCULAR: S1 and S2 present. Irregular rhythm, tachycardia noted PULMONARY: Chest is clear to auscultation, no wheezing or crackles. ABDOMEN: Soft, nontender, nondistended, normoactive bowel sounds. No palpable organomegaly. MUSCULOSKELETAL: No joint swelling or deformity. EXTREMITIES: No cyanosis, clubbing, or pedal edema. NEUROLOGICAL: Gross neurological examination did not reveal any focal deficits. SKIN: No rashes. Past Medical History Past Medical History: Cancer, Hyperlipidemia, Osteoarthritis (OA), Sleep Apnea/CPAP/BIPAP, Thyroid Disorder Additional Past Medical History / Comment(s): possible sleep apnea-no tx., enlarged prostate, hx. colon polyps prostate ca 2020 radiation tx and clear History of Any Multi-Drug Resistant Organisms: None Reported Additional Past Surgical History / Comment(s): lt eye vitrectomy( july 2016).vasectomy, cataracts removed,colonoscopy Past Anesthesia/Blood Transfusion Reactions: No Reported Reaction Past Psychological History: No Psychological Hx Reported Smoking Status: Never smoker Past Alcohol Use History: None Reported Past Drug Use History: None Reported - Past Family History Mother Additional Family Medical History / Comment(s): CABG Father Family Medical History: Cancer Brother(s) Family Medical History: Cancer, Diabetes Mellitus Additional Family Medical History / Comment(s): kidney Medications and Allergies Home Medications Medication Instructions Recorded Confirmed Type Atorvastatin [Lipitor] 40 mg PO HS 03/12/17 06/14/23 History Vit C/E/Zn/Coppr/Lutein/Zeaxan 1 cap PO BID 02/13/18 06/14/23 History [Preservision Areds 2 Softgel] Cholecalciferol [Vitamin D3 (25 25 mcg PO BID 06/11/23 06/14/23 History Mcg = 1000 Iu)] Docusate [Colace] 100 mg PO DAILY PRN 06/11/23 06/14/23 History Simethicone Chew [Mylicon Chew] 40 mg PO QID 7 Days #28 tab 06/11/23 06/14/23 Rx Levothyroxine Sodium [Synthroid] 125 mcg PO DAILY 06/14/23 06/14/23 History Allergies Allergy/AdvReac Type Severity Reaction Status Date / Time bee venom protein (honey bee) Allergy Swelling Verified 06/14/23 10:50 Penicillins Allergy Anaphylaxis Verified 06/14/23 10:50 Physical Exam Vitals: Vital Signs Temp Pulse Resp BP Pulse Ox 06/14/23 08:37 70 16 117/58 94 L 06/14/23 07:25 75 20 114/61 93 L 06/14/23 05:49 71 16 114/61 95 06/14/23 04:30 70 11 L 111/57 93 L 06/14/23 04:00 71 19 106/59 93 L 06/14/23 00:47 98.1 F 68 17 103/59 93 L 06/13/23 23:03 82 16 108/56 95 06/13/23 21:14 98.9 F 78 14 91/61 94 L 06/13/23 20:05 150 H 16 116/67 95 06/13/23 17:19 100 F H 105 H 18 117/64 96 Intake and Output 06/13/23 06/14/23 06/14/23 22:59 06:59 14:59 Other: Weight 81.647 kg Results CBC & Chem 7: 06/13/23 17:45 06/13/23 17:45 Labs: Abnormal Lab Results - Last 24 Hours (Table) 06/13/23 06/13/23 06/13/23 Range/Units 17:45 17:45 17:45 WBC 18.4 H (3.8-10.6) k/uL Neutrophils # 15.5 H (1.3-7.7) k/uL Sodium 134 L (137-145) mmol/L Carbon Dioxide 20 L (22-30) mmol/L Glucose 178 H (74-99) mg/dL Magnesium 2.5 H (1.6-2.3) mg/dL Alkaline Phosphatase 137 H (38-126) U/L Urine Protein 1+ H (Negative) Urine Blood Small H (Negative) Amorphous Sediment Rare H (None) /hpf Urine Mucus Many H (None) /hpf Assessment and Plan Assessment: Assessment and plan * New onset atrial fibrillation with rapid ventricular response * History of hypothyroid * Dyslipidemia * Leukocytosis likely reactive * In regards to new onset atrial fibrillation, continue patient on Cardizem drip, patient has Gerald Vas score of 3, started on IV heparin, will wean off Cardizem * In regards to hypothyroid, continue Synthyroid will check TSH levels * Regards to dyslipidemia continue patient on Lipitor * Do not suspect pneumonia, antibiotics discontinued follow-up on CRP and procalcitonin levels chest x-ray negative * CODE STATUS is full code Time with Patient: Greater than 30
[2023-06-14 13:42] LABS: Basophils % (A) 0 %; Eosinophils # (A) 0.1 k/uL (0-0.7); Eosinophils % (A) 1 %; HCT 39.5 % (39.0-53.0); HGB 13.2 gm/dL (13.0-17.5); Lymphocytes # (A) 1.3 k/uL (1.0-4.8); Lymphocytes % (A) 12 %; MCH 31.8 pg (25.0-35.0); MCHC 33.4 g/dL (31.0-37.0); MCV 95.2 fL (80.0-100.0); Monocytes # (A) 0.7 k/uL (0-1.0); Monocytes % (A) 6 %; Neutrophils # (A) 8.8 k/uL (1.3-7.7); Neutrophils % (A) 78 %; Platelet Count 193 k/uL (150-450); RBC 4.15 m/uL (4.30-5.90); RDW 12.9 % (11.5-15.5); WBC 11.3 k/uL (3.8-10.6)
[2023-06-14 14:17] LABS: C Reactive Protein 13.3 mg/dL (<1.0)
[2023-06-14 14:20] LABS: Partial Thromboplastin Time 42.7 sec (22.0-30.0); Prothrombin Time 10.9 sec (10.0-12.5)
[2023-06-14] MEDS: HEPARIN SODIUM 1,000 UN/ML (10ML VL) IV PRN (16:59)
[2023-06-14] MEDS: ATORVASTATIN 40 MG TAB PO SCH (22:12)
[2023-06-15 04:56] LABS: Basophils % (A) 0 %; Eosinophils # (A) 0.2 k/uL (0-0.7); Eosinophils % (A) 2 %; HCT 36.6 % (39.0-53.0); HGB 12.2 gm/dL (13.0-17.5); Lymphocytes # (A) 1.5 k/uL (1.0-4.8); Lymphocytes % (A) 14 %; MCH 31.2 pg (25.0-35.0); MCHC 33.2 g/dL (31.0-37.0); MCV 93.9 fL (80.0-100.0); Mean Platelet Volume 7.3; Monocytes # (A) 0.6 k/uL (0-1.0); Monocytes % (A) 6 %; Neutrophils # (A) 7.9 k/uL (1.3-7.7); Neutrophils % (A) 75 %; Platelet Count 189 k/uL (150-450); RBC 3.89 m/uL (4.30-5.90); WBC 10.6 k/uL (3.8-10.6)
[2023-06-15 05:06] LABS: African American GFR (CKD) >90 (>60 ml/min/1.73 sqM); Anion Gap 3 mmol/L; Blood Urea Nitrogen 10 mg/dL (9-20); Calcium 7.5 mg/dL (8.4-10.2); Carbon Dioxide 23 mmol/L (22-30); Chloride 110 mmol/L (98-107); Glucose 105 mg/dL (74-99); Non-African American GFR(CKD) >90 (>60 ml/min/1.73 sqM); Potassium 4.2 mmol/L (3.5-5.1); Sodium 136 mmol/L (137-145)
[2023-06-15 05:13] LABS: Partial Thromboplastin Time 38.4 sec (22.0-30.0); Prothrombin Time 10.6 sec (10.0-12.5)
[2023-06-15] MEDS: LEVOTHYROXINE 125 MCG TAB PO SCH (06:17)
--- NOTE | 2023-06-15 07:52 | XR ---
EXAMINATION TYPE: XR chest 1V portable DATE OF EXAM: 06/15/2023 HISTORY: Shortness of breath. COMPARISON: June 13, 2023 TECHNIQUE: Single view of the chest is submitted. FINDINGS: Demonstrated are scattered senescent parenchymal change. Right basilar linear atelectasis is noted. Underlying infiltrate difficult to exclude. The heart is stable. Hilar and mediastinal structures are within normal limits. Degenerative changes are seen of the dorsal spine. IMPRESSION: 1. Right basilar linear atelectasis is noted. Underlying infiltrate difficult to exclude.
[2023-06-15] MEDS: ASPIRIN 325 MG TAB PO SCH (08:53)
[2023-06-15] MEDS: METOPROLOL SUCCINATE (ER) 25 MG TAB.ER.24H PO SCH (08:53)
[2023-06-15 10:24] LABS: Chol/HDL Ratio 3.58 Ratio; LDL Cholesterol,Calculated 43.4 mg/dL (0.0-131.0)
[2023-06-15] MEDS: APIXABAN 5 MG TAB PO SCH (12:32)
--- NOTE | 2023-06-15 13:20 | P.PN ---
Subjective Progress Note Date: 06/15/23 Consult reason: atrial fibrillation Chief complaint: weakness, palpitations, fever, fatigue History of present illness: History of present illness: Patient is a pleasant 77-year-old male with significant past medical history of hyperlipidemia and hypothyroidism who presented to the emergency department with complaints of generalized weakness, fevers, fatigue, palpitations. He was found to be in A-fib with RVR. This is a new diagnosis. He was recently seen 06/11/2023 with complaints of chest pain. He did have echocardiogram 06/11/2023 which showed EF 55-60%. Stress echo was unrevealing. He was discharged home. Yesterday he was feeling heart palpitations, fatigue, generalized weakness and returned back to the emergency department. EG shows atrial fibrillation 140 bpm. Chest x-ray with no acute findings. Labs reviewed: WBC 18.4, sodium 134, potassium 4.4, creatinine 0.76, troponin negative x 2. He did convert back to the normal sinus rhythm prior to initiation of Cardizem drip and is feeling better with more energy. He is very active at baseline. He did not history of hypertension, stroke, AR, CHF, diabetes, blood clots. Any chest pain or pressure. 2/ Patient is seen today on the CSD unit. Patient has converted to SR. Patient denies any chest pain, sob, lightheadedness/dizziness. No palpitations. He is on heparin gtt and Toprol has bee started. TSh normal. Patient is scheduled for CT of chest/abd/pelvis as patient has an elevated CRP does not explain well. PHYSICAL EXAMINATION: This is a 77-year-old male in no apparent distress at the time of my examination. HEENT: Head is atraumatic, normocephalic. Pupils are equal, round. Sclerae anicteric. Conjunctivae are clear. Mucous membranes of the mouth are moist. Neck is supple. There is no jugular venous distention. No carotid bruit is heard. CHEST EXAMINATION: Lungs are clear to auscultation. No chest wall tenderness is noted on palpation or with deep breathing. HEART EXAMINATION: Heart regular rate and rhythm. S1, S2 heard. No murmurs, gallops or rub. ABDOMEN: Soft, nontender. Bowel sounds are heard. EXTREMITIES: 2+ peripheral pulses with no evidence of peripheral edema and no calf tenderness noted. NEUROLOGIC EXAMINATION: Patient is awake, alert and oriented x3. IMPRESSION AND PLAN: New onset atrial fibrillation, paroxysmal; currently in sinus rhythm Hyperlipidemia Hypothyroidism Generalized weakness Leukocytosis PLAN: Discontinue Heparin gtt and start Eliquis 5mg bid Continue Toprol 25mg po daily. Recent workup with echo and stress echo 4 days ago was unrevealing. OK to discharge home from cardiology standpoint. Follow up in clinic in 1 week. Cardiology will sign off this case and follow on an as-needed basis. Please reconsult for any new concerns. Patient may follow-up in the office in one to 2 weeks. Nurse practitioner note has been reviewed, I agree with documented findings and plan of care. Patient was seen and examined. Objective - Vital Signs Vital signs: Vital Signs Temp 98.3 F 06/15/23 11:50 Pulse 63 06/15/23 11:50 Resp 20 06/15/23 11:50 BP 128/60 06/15/23 11:50 Pulse Ox 96 06/15/23 11:50 FiO2 Intake & Output 06/14/23 06/15/23 06/15/23 18:59 06:59 18:59 Intake Total 59.441 174.167 305.063 Output Total 300 Balance 59.441 -125.833 305.063 Weight 81.647 kg Intake: Intake, IV Titration 59.441 174.167 85.063 Amount Heparin Sod,Pork in 0.45% 59.441 174.167 85.063 NaCl 25,000 unit In 0.45 % NaCl 1 250ml.bag @ 12 UNITS/KG/HR 9.798 mls/hr IV .Q24H [facility] Rx#: [id number] Oral 220 Output: Urine 300 Other: Voiding Method Toilet Toilet Urinal Urinal # Voids 1 - Labs CBC & Chem 7: 06/15/23 04:32 06/15/23 04:32 Labs: Abnormal Lab Results - Last 24 Hours (Table) 06/14/23 06/14/23 06/14/23 Range/Units 12:22 12:22 12:22 WBC 11.3 H (3.8-10.6) k/uL RBC 4.15 L (4.30-5.90) m/uL Hgb (13.0-17.5) gm/dL Hct (39.0-53.0) % Neutrophils # 8.8 H (1.3-7.7) k/uL APTT (22.0-30.0) sec Sodium (137-145) mmol/L Chloride (98-107) mmol/L Creatinine (0.66-1.25) mg/dL Glucose (74-99) mg/dL Calcium (8.4-10.2) mg/dL C-Reactive Protein 13.3 H (<1.0) mg/dL HDL Cholesterol (40.00-60.00) mg/dL Procalcitonin 0.23 H (0.02-0.09) ng/mL 06/14/23 06/14/23 06/14/23 Range/Units 12:22 15:54 22:58 WBC (3.8-10.6) k/uL RBC (4.30-5.90) m/uL Hgb (13.0-17.5) gm/dL Hct (39.0-53.0) % Neutrophils # (1.3-7.7) k/uL APTT 42.7 H 30.7 H 37.3 H (22.0-30.0) sec Sodium (137-145) mmol/L Chloride (98-107) mmol/L Creatinine (0.66-1.25) mg/dL Glucose (74-99) mg/dL Calcium (8.4-10.2) mg/dL C-Reactive Protein (<1.0) mg/dL HDL Cholesterol (40.00-60.00) mg/dL Procalcitonin (0.02-0.09) ng/mL 06/15/23 06/15/23 06/15/23 Range/Units 04:32 04:32 04:32 WBC (3.8-10.6) k/uL RBC 3.89 L (4.30-5.90) m/uL Hgb 12.2 L (13.0-17.5) gm/dL Hct 36.6 L (39.0-53.0) % Neutrophils # 7.9 H (1.3-7.7) k/uL APTT 38.4 H (22.0-30.0) sec Sodium 136 L (137-145) mmol/L Chloride 110 H (98-107) mmol/L Creatinine 0.65 L (0.66-1.25) mg/dL Glucose 105 H (74-99) mg/dL Calcium 7.5 L (8.4-10.2) mg/dL C-Reactive Protein (<1.0) mg/dL HDL Cholesterol 25.40 L (40.00-60.00) mg/dL Procalcitonin (0.02-0.09) ng/mL 06/15/23 Range/Units 10:18 WBC (3.8-10.6) k/uL RBC (4.30-5.90) m/uL Hgb (13.0-17.5) gm/dL Hct (39.0-53.0) % Neutrophils # (1.3-7.7) k/uL APTT 38.7 H (22.0-30.0) sec Sodium (137-145) mmol/L Chloride (98-107) mmol/L Creatinine (0.66-1.25) mg/dL Glucose (74-99) mg/dL Calcium (8.4-10.2) mg/dL C-Reactive Protein (<1.0) mg/dL HDL Cholesterol (40.00-60.00) mg/dL Procalcitonin (0.02-0.09) ng/mL Microbiology - Last 24 Hours (Table) 06/14/23 10:58 Gram Stain - Final Sputum Sputum Culture - Final 06/13/23 19:58 Blood Culture - Preliminary Blood 06/13/23 19:58 Blood Culture - Preliminary Blood
--- NOTE | 2023-06-15 13:39 | P.PN ---
Subjective Progress Note Date: 06/15/23 * 77-year-old gentleman with past medical history significant for osteoarthritis, dyslipidemia history of prostate cancer presents to the emergency department with complaints of fatigue. Patient was recently discharged on 06/11/2023 admitted with chest pain workup was done including stress test that came back negative, ACS was ruled out during the hospitalization patient had complained of epigastric discomfort and x-ray KUB was done which showed nonobstructive bowel gas pattern extensive stool burden was noted. Patient presents with worsening fatigue, workup initiated include WBC of 1818.4 hemoglobin 15.6 platelet count of 234 INR of 1, serum chemistry sodium 134 potassium 4.4, dioxide 20 BUN 18 creatinine 0.76 magnesium 2.5 urinalysis was done which was essentially negative for UTI, patient tested negative for influenza, COVID and RSV urine Legionella was negative. Upon admission suspected pneumonia however started on Rocephin and azithromycin 1 dose was given. * EKG obtained in ER showed new onset atrial fibrillation with rapid ventricle response heart rate in 140s. Patient was given 10 mg of IV Cardizem 1 L fluid bolus and started on Cardizem drip * Patient to be admitted to medical floor with consultation from cardiology * 06/15/2023: Patient seen and evaluated bedside, at bedside as well, WBC count has improved, patient did have intermittent abdominal discomfort CT abdomen pelvis ordered. Procalcitonin minimally elevated CRP elevated follow- up chest x-ray does not show infiltrate atelectasis noted. Heart rate has improved continue oral anticoagulation as well as oral medications for rate control appreciate input from cardiology REVIEW OF SYSTEMS: Fatigue improved CONSTITUTIONAL: Fatigue improved HEENT: No recent visual problems or hearing problems. Denied any sore throat. CARDIOVASCULAR: No chest pain, orthopnea, PND, no palpitations, no syncope. PULMONARY: No shortness of breath, no cough, no hemoptysis. GASTROINTESTINAL: No diarrhea, no nausea, no vomiting, no abdominal pain. NEUROLOGICAL: No headaches, no weakness, no numbness. HEMATOLOGICAL: Denies any bleeding or petechiae. GENITOURINARY: Denies any burning micturition, frequency, or urgency. MUSCULOSKELETAL/RHEUMATOLOGICAL: Denies any joint pain, swelling, or any muscle pain. ENDOCRINE: Denies any polyuria or polydipsia. PHYSICAL EXAMINATION: GENERAL: The patient is alert and oriented x3, ill appearance HEENT: Pupils are round and equally reacting to light. EOMI. CARDIOVASCULAR: S1 and S2 present. Irregular rhythm, tachycardia Improved PULMONARY: Chest is clear to auscultation, no wheezing or crackles. ABDOMEN: Soft, nontender, nondistended, normoactive bowel sounds. No palpable organomegaly. MUSCULOSKELETAL: No joint swelling or deformity. EXTREMITIES: No cyanosis, clubbing, or pedal edema. NEUROLOGICAL: Gross neurological examination did not reveal any focal deficits. SKIN: No rashes. Objective - Vital Signs Vital signs: Vital Signs Temp 99.5 F 06/14/23 19:43 Pulse 71 06/14/23 20:59 Resp 17 06/14/23 20:59 BP 132/75 06/14/23 20:59 Pulse Ox 94 L 06/14/23 20:59 FiO2 Intake & Output 06/14/23 06/14/23 06/15/23 06:59 18:59 06:59 Intake Total 59.441 Balance 59.441 Intake: Intake, IV Titration 59.441 Amount Heparin Sod,Pork in 0.45% 59.441 NaCl 25,000 unit In 0.45 % NaCl 1 250ml.bag @ 12 UNITS/KG/HR 9.798 mls/hr IV .Q24H [facility] Rx#: [id number] - Labs CBC & Chem 7: 06/15/23 04:32 06/15/23 04:32 Labs: Abnormal Lab Results - Last 24 Hours (Table) 06/14/23 06/14/23 06/14/23 Range/Units 12:22 12:22 12:22 WBC 11.3 H (3.8-10.6) k/uL RBC 4.15 L (4.30-5.90) m/uL Neutrophils # 8.8 H (1.3-7.7) k/uL APTT 42.7 H (22.0-30.0) sec C-Reactive Protein 13.3 H (<1.0) mg/dL 06/14/23 Range/Units 15:54 WBC (3.8-10.6) k/uL RBC (4.30-5.90) m/uL Neutrophils # (1.3-7.7) k/uL APTT 30.7 H (22.0-30.0) sec C-Reactive Protein (<1.0) mg/dL Assessment and Plan Assessment: Assessment and plan * New onset atrial fibrillation with rapid ventricular response * History of hypothyroid * Dyslipidemia * Leukocytosis likely reactive * History of diverticulosis * In regards to new onset atrial fibrillation, patient was on Cardizem drip, patient has Gerald Vas score of 3, was started on IV heparin>> consideration to Eliquis, weaned off Cardizem drip. Initiated on metoprolol * In regards to hypothyroid, continue Synthyroid will check TSH levels * Regards to dyslipidemia continue patient on Lipitor * Do not suspect pneumonia, antibiotics discontinued >> follow-up on CRP and procalcitonin levels, chest x-ray negative, follow-up ordered * In regards to history of diverticulosis, CT abdomen pelvis * CODE STATUS is full code Time with Patient: Greater than 30
[2023-06-15] MEDS: IOPAMIDOL CONTRAST (ORAL USE) VIAL PO PRN (14:02)
--- NOTE | 2023-06-15 15:53 | CT ---
EXAMINATION TYPE: CT abdomen pelvis wo con DATE OF EXAM: 06/15/2023 COMPARISON: None HISTORY: Diverticulitis, abdominal pain CT DLP: 835.3 mGycm Automated exposure control for dose reduction was used. TECHNIQUE: Helical acquisition of images was performed from the lung bases through the pelvis. FINDINGS: There is a partially consolidative density in the left lung base posteriorly consistent with a pneumo ruby infiltrate. There is mild atelectasis and tiny pleural effusion in the right lung base. There is a large gallstone. Mild pericholecystic fluid but no biliary ductal dilatation. There is no organomegaly involving the liver, pancreas, spleen or adrenal glands. There is no renal calcification or hydronephrosis There is no retroperitoneal adenopathy or hemorrhage in the caliber of the abdominal aorta is normal. The bowel loops are normal in caliber and there is no dilatation or obstruction. There is diverticulo sis of this colon but no CT evidence of acute diverticulitis. No free intraperitoneal air or fluid. There is no pelvic mass, free fluid, abscess or adenopathy. There are mild prostatic calcifications. The osseous structures are intact. There is no abnormality of the abdominal wall. IMPRESSION: 1. Left lower lobe infiltrate, possible pneumonia. 2. Large gallstone and pericholecystic fluid raising the question of acute cholecystitis. 3. No evidence of bowel obstruction or inflammation.
[2023-06-16 06:50] LABS: HCT 33.5 % (39.0-53.0); HGB 11.9 gm/dL (13.0-17.5); MCH 32.8 pg (25.0-35.0); MCHC 35.5 g/dL (31.0-37.0); MCV 92.3 fL (80.0-100.0); Mean Platelet Volume 7.5; Platelet Count 199 k/uL (150-450); RBC 3.63 m/uL (4.30-5.90); RDW 12.9 % (11.5-15.5); WBC 9.3 k/uL (3.8-10.6)
[2023-06-16 07:23] LABS: African American GFR (CKD) >90 (>60 ml/min/1.73 sqM); Anion Gap 4 mmol/L; Blood Urea Nitrogen 10 mg/dL (9-20); C Reactive Protein 5.2 mg/dL (<1.0); Calcium 7.7 mg/dL (8.4-10.2); Carbon Dioxide 21 mmol/L (22-30); Chloride 111 mmol/L (98-107); Glucose 104 mg/dL (74-99); Non-African American GFR(CKD) >90 (>60 ml/min/1.73 sqM); Potassium 4.3 mmol/L (3.5-5.1); Sodium 136 mmol/L (137-145)
[2023-06-16] MEDS: LEVOFLOXACIN 750 MG TAB PO SCH (12:03)
--- NOTE | 2023-06-16 12:32 | P.PN ---
Subjective Progress Note Date: 06/16/23 * 77-year-old gentleman with past medical history significant for osteoarthritis, dyslipidemia history of prostate cancer presents to the emergency department with complaints of fatigue. Patient was recently discharged on 06/11/2023 admitted with chest pain workup was done including stress test that came back negative, ACS was ruled out during the hospitalization patient had complained of epigastric discomfort and x-ray KUB was done which showed nonobstructive bowel gas pattern extensive stool burden was noted. Patient presents with worsening fatigue, workup initiated include WBC of 1818.4 hemoglobin 15.6 platelet count of 234 INR of 1, serum chemistry sodium 134 potassium 4.4, dioxide 20 BUN 18 creatinine 0.76 magnesium 2.5 urinalysis was done which was essentially negative for UTI, patient tested negative for influenza, COVID and RSV urine Legionella was negative. Upon admission suspected pneumonia however started on Rocephin and azithromycin 1 dose was given. * EKG obtained in ER showed new onset atrial fibrillation with rapid ventricle response heart rate in 140s. Patient was given 10 mg of IV Cardizem 1 L fluid bolus and started on Cardizem drip * Patient to be admitted to medical floor with consultation from cardiology * 06/15/2023: Patient seen and evaluated bedside, at bedside as well, WBC count has improved, patient did have intermittent abdominal discomfort CT abdomen pelvis ordered. Procalcitonin minimally elevated CRP elevated follow- up chest x-ray does not show infiltrate atelectasis noted. Heart rate has improved continue oral anticoagulation as well as oral medications for rate control appreciate input from cardiology * 06/16/2023: Patient seen and evaluated bedside. at bedside CT findings discussed with patient. Started on antibiotic due to concern for right lower lobe infiltrate. Gallstone noted, general surgery consulted. Ultrasound right upper quadrant ordered. REVIEW OF SYSTEMS: Fatigue improved CONSTITUTIONAL: Fatigue improved HEENT: No recent visual problems or hearing problems. Denied any sore throat. CARDIOVASCULAR: No chest pain, orthopnea, PND, no palpitations, no syncope. PULMONARY: No shortness of breath, no cough, no hemoptysis. GASTROINTESTINAL: No diarrhea, no nausea, no vomiting, no abdominal pain. NEUROLOGICAL: No headaches, no weakness, no numbness. HEMATOLOGICAL: Denies any bleeding or petechiae. GENITOURINARY: Denies any burning micturition, frequency, or urgency. MUSCULOSKELETAL/RHEUMATOLOGICAL: Denies any joint pain, swelling, or any muscle pain. ENDOCRINE: Denies any polyuria or polydipsia. PHYSICAL EXAMINATION: GENERAL: The patient is alert and oriented x3, ill appearance HEENT: Pupils are round and equally reacting to light. EOMI. CARDIOVASCULAR: S1 and S2 present. Irregular rhythm, tachycardia Improved PULMONARY: Chest is clear to auscultation, no wheezing or crackles. ABDOMEN: Soft, nontender, nondistended, normoactive bowel sounds. No palpable organomegaly. MUSCULOSKELETAL: No joint swelling or deformity. EXTREMITIES: No cyanosis, clubbing, or pedal edema. NEUROLOGICAL: Gross neurological examination did not reveal any focal deficits. SKIN: No rashes. Objective - Vital Signs Vital signs: Vital Signs Temp 98.1 F 06/16/23 11:59 Pulse 58 L 06/16/23 11:59 Resp 18 06/16/23 11:59 BP 137/65 06/16/23 11:59 Pulse Ox 96 06/16/23 11:59 FiO2 Intake & Output 06/15/23 06/16/23 06/16/23 18:59 06:59 18:59 Intake Total 541.063 358 Output Total 400 Balance 541.063 -400 358 Intake: Intake, IV Titration 85.063 Amount Heparin Sod,Pork in 0.45% 85.063 NaCl 25,000 unit In 0.45 % NaCl 1 250ml.bag @ 12 UNITS/KG/HR 9.798 mls/hr IV .Q24H [facility] Rx#: [id number] Oral 456 358 Output: Urine 400 Other: Voiding Method Toilet Toilet Toilet Urinal Urinal Urinal # Voids 1 1 # Bowel Movements 1 - Labs CBC & Chem 7: 06/16/23 06:34 06/16/23 06:34 Labs: Abnormal Lab Results - Last 24 Hours (Table) 06/15/23 06/16/23 06/16/23 Range/Units 04:32 06:34 06:34 RBC 3.63 L (4.30-5.90) m/uL Hgb 11.9 L (13.0-17.5) gm/dL Hct 33.5 L (39.0-53.0) % Sodium 136 L (137-145) mmol/L Chloride 111 H (98-107) mmol/L Carbon Dioxide 21 L (22-30) mmol/L Creatinine 0.60 L (0.66-1.25) mg/dL Glucose 104 H (74-99) mg/dL Calcium 7.7 L (8.4-10.2) mg/dL C-Reactive Protein 5.2 H (<1.0) mg/dL Procalcitonin 0.15 H (0.02-0.09) ng/mL Microbiology - Last 24 Hours (Table) 06/13/23 19:58 Blood Culture - Preliminary Blood 06/13/23 19:58 Blood Culture - Preliminary Blood 06/14/23 10:58 Gram Stain - Final Sputum Sputum Culture - Final Assessment and Plan Assessment: Assessment and plan * New onset atrial fibrillation with rapid ventricular response * Cholelithiasis with pericholecystic fluid collection * Right lower lobe pneumonia ruled in * History of hypothyroid * Dyslipidemia * History of diverticulosis * In regards to new onset atrial fibrillation, patient was on Cardizem drip, patient has Gerald Vas score of 3, was started on IV heparin>> transitioned to Eliquis, weaned off Cardizem drip. Initiated on metoprolol, heart rate be tter controlled * In regards to incidental finding of cholelithiasis, ultrasound right upper quadrant ordered General surgery consulted * In regards to hypothyroid, continue Synthyroid , TSH within normal limits * Regards to dyslipidemia continue patient on Lipitor * In regards to right lower lobe pneumonia, procalcitonin minimally elevated elevated CRP started on Levaquin to complete total 5-day course, CRP trending down from 13 > 5.5, urine Legionella ordered * In regards to history of diverticulosis, CT abdomen pelvis completed reviewed and discussed with patient * CODE STATUS is full code Time with Patient: Greater than 30
--- NOTE | 2023-06-16 13:51 | P.GSCN ---
History of Present Illness Consult date: 06/16/23 History of present illness: CHIEF COMPLAINT: Chest pain and abdominal pain HISTORY OF PRESENT ILLNESS: This is a 77-year-old male who presented with chest pain and epigastric abdominal pain radiating to his back. Symptoms started 3 days ago. He was having nausea and dry heaves and a few episodes of emesis with bile. Patient reports symptoms did start eating a ham sandwich with mayonnaise. And prior to that he had eaten pizza the day before. Patient was found to have A-fib RVR initially started on Cardizem drip and IV heparin. He is currently on Eliquis and last dose was this morning. Patient currently has no abdominal pain. He had a CT scan completed yesterday that did show a large gallstone and pericholecystic fluid raising the question of acute cholecystitis. Patient did have a low-grade fever and elevated white count on admission. Abdominal ult rasound pending. Surgical service consulted for abdominal pain and cholelithiasis. Patient denies any prior abdominal surgery. Patient denies any coughing. Patient also being treated for possible pneumonia. PAST MEDICAL HISTORY: Prostate Cancer s/p radiation treatment, Hyperlipidemia, Osteoarthritis (OA), Sleep Apnea/CPAP/BIPAP, Thyroid Disorder PAST SURGICAL HISTORY: Vasectomy MEDICATIONS: See below ALLERGIES: See below SOCIAL HISTORY: No illicit drug use. REVIEW OF SYSTEMS: CONSTITUTIONAL: Denies fever or chills. HEENT: Denies blurred vision, vision changes, or eye pain. Denies hemoptysis CARDIOVASCULAR: Denies chest pain or pressure. RESPIRATORY: No shortness of breath. GASTROINTESTINAL: See HPI for pertinent findings HEMATOLOGIC: Denies bleeding disorders. GENITOURINARY: Denies any blood in urine or increased urinary frequency. SKIN: Denies pruitis. Denies rash. PHYSICAL EXAM: VITAL SIGNS: Reviewed GENERAL: Well-developed in no acute distress. HEENT: No sclera icterus. Extraocular movements grossly intact. Moist buccal mucosa. Head is atraumatic, normocephalic. No nasal drainage. ABDOMEN: Soft. Nondistended. Nontender NEUROLOGIC: Alert and oriented. Cranial nerves II through XII grossly intact. LABORATORY DATA: WBC 18 down to 9.3 Hgb 11.9 platelets 199 Sodium 136 potassium 4.3 creatinine 0.60 Total bili 0.7 AST 31 ALT 34 alk phos 134 Lactic acid 1.8 CRP 13.3 down to 5.2 Influenza, urine Legionella, RSV COVID-19 not detected IMAGING: CT scan abdomen pelvis left lower lobe infiltrate, possible pneumonia. Large gallstone and pericholecystic fluid raising the question of acute cholecystitis. No evidence of bowel obstruction or inflammation ASSESSMENT: 1. Biliary Colic 2. Epigastric abdominal pain with CT scan showing evidence of large gallstone and pericholecystic fluid raising question of acute cholecystitis 3. Chest pain evaluated by cardiology 4. New onset atrial fibrillation PLAN: -Patient scheduled for laparoscopic cholecystectomy on Friday with Dr. Howe -Continue antibiotics -Hold Eliquis for surgical intervention -Continue supportive care -keep patient NPO -Follow-up on abdominal ultrasound results Thank you for this consultation Physician Associate Attorney note has been reviewed by physician. Signing provider agrees with the documented findings, assessment, and plan of care. Past Medical History Past Medical History: Cancer, Hyperlipidemia, Osteoarthritis (OA), Sleep Apnea/CPAP/BIPAP, Thyroid Disorder Additional Past Medical History / Comment(s): possible sleep apnea-no tx., enlarged prostate, hx. colon polyps prostate ca 2020 radiation tx and clear History of Any Multi-Drug Resistant Organisms: None Reported Additional Past Surgical History / Comment(s): lt eye vitrectomy( july 2016).vasectomy, cataracts removed,colonoscopy Past Anesthesia/Blood Transfusion Reactions: No Reported Reaction Past Psychological History: No Psychological Hx Reported Smoking Status: Never smoker Past Alcohol Use History: None Reported Past Drug Use History: None Reported - Past Family History Mother Additional Family Medical History / Comment(s): CABG Father Family Medical History: Cancer Brother(s) Family Medical History: Cancer, Diabetes Mellitus Additional Family Medical History / Comment(s): kidney Medications and Allergies Home Medications Medication Instructions Recorded Confirmed Type Atorvastatin [Lipitor] 40 mg PO HS 03/12/17 06/14/23 History Vit C/E/Zn/Coppr/Lutein/Zeaxan 1 cap PO BID 02/13/18 06/14/23 History [Preservision Areds 2 Softgel] Cholecalciferol [Vitamin D3 (25 25 mcg PO BID 06/11/23 06/14/23 History Mcg = 1000 Iu)] Docusate [Colace] 100 mg PO DAILY PRN 06/11/23 06/14/23 History Simethicone Chew [Mylicon Chew] 40 mg PO QID 7 Days #28 tab 06/11/23 06/14/23 Rx Levothyroxine Sodium [Synthroid] 125 mcg PO DAILY 06/14/23 06/14/23 History Allergies Allergy/AdvReac Type Severity Reaction Status Date / Time bee venom protein (honey bee) Allergy Swelling Verified 06/14/23 10:50 Penicillins Allergy Anaphylaxis Verified 06/14/23 10:50 Surgical - Exam Vital Signs Temp Pulse Resp BP Pulse Ox 100 F H 105 H 18 117/64 96 06/13/23 17:19 06/13/23 17:19 06/13/23 17:19 06/13/23 17:19 06/13/23 17:19 Results - Labs 06/16/23 06:34 06/16/23 06:34 Abnormal Lab Results - Last 24 Hours (Table) 06/15/23 06/16/23 06/16/23 Range/Units 04:32 06:34 06:34 RBC 3.63 L (4.30-5.90) m/uL Hgb 11.9 L (13.0-17.5) gm/dL Hct 33.5 L (39.0-53.0) % Sodium 136 L (137-145) mmol/L Chloride 111 H (98-107) mmol/L Carbon Dioxide 21 L (22-30) mmol/L Creatinine 0.60 L (0.66-1.25) mg/dL Glucose 104 H (74-99) mg/dL Calcium 7.7 L (8.4-10.2) mg/dL C-Reactive Protein 5.2 H (<1.0) mg/dL Procalcitonin 0.15 H (0.02-0.09) ng/mL Microbiology - Last 24 Hours (Table) 06/13/23 19:58 Blood Culture - Preliminary Blood 06/13/23 19:58 Blood Culture - Preliminary Blood Diabetes panel 06/16/23 Range/Units 06:34 Sodium 136 L (137-145) mmol/L Potassium 4.3 (3.5-5.1) mmol/L Chloride 111 H (98-107) mmol/L Carbon Dioxide 21 L (22-30) mmol/L BUN 10 (9-20) mg/dL Creatinine 0.60 L (0.66-1.25) mg/dL Glucose 104 H (74-99) mg/dL Calcium 7.7 L (8.4-10.2) mg/dL Calcium panel 06/16/23 Range/Units 06:34 Calcium 7.7 L (8.4-10.2) mg/dL Pituitary panel 06/16/23 Range/Units 06:34 Sodium 136 L (137-145) mmol/L Potassium 4.3 (3.5-5.1) mmol/L Chloride 111 H (98-107) mmol/L Carbon Dioxide 21 L (22-30) mmol/L BUN 10 (9-20) mg/dL Creatinine 0.60 L (0.66-1.25) mg/dL Glucose 104 H (74-99) mg/dL Calcium 7.7 L (8.4-10.2) mg/dL Adrenal panel 06/16/23 Range/Units 06:34 Sodium 136 L (137-145) mmol/L Potassium 4.3 (3.5-5.1) mmol/L Chloride 111 H (98-107) mmol/L Carbon Dioxide 21 L (22-30) mmol/L BUN 10 (9-20) mg/dL Creatinine 0.60 L (0.66-1.25) mg/dL Glucose 104 H (74-99) mg/dL Calcium 7.7 L (8.4-10.2) mg/dL
--- NOTE | 2023-06-16 14:31 | US ---
EXAMINATION TYPE: US abdomen limited DATE OF EXAM: 06/16/2023 COMPARISON: CT CLINICAL INDICATION: Male, 77 years old with history of Cholelithiasis with pericholecystic fluid; Ab normal CT TECHNIQUE: Multiple sonographic images of the right upper quadrant are obtained. FINDINGS: EXAM MEASUREMENTS: Liver Length: 17.9 cm Gallbladder Wall: 0.5 cm CBD: 0.7 cm Right Kidney: 10.9 x 5.0 x 5.6 cm DIRECTOR OF DEMENTIA OPERATIONS NOTES: Pancreas: 2mm panc duct visualized, head and tail obscured by overlying bowel gas Liver: Visualized portions appeared wnl Gallbladder: Slightly contracted with gallstone, thickened wall Evidence for sonographic Shepherd's sign: No CBD: wnl Right Kidney: Visualized portions appeared wnl IMPRESSION: 1. Cholelithiasis with mild gallbladder wall thickening. However, the gallbladder is contracted which may account for the gallbladder wall thickening. There is a trace amount of pericholecystic fluid. B zachary visualized by CT scan. Consider follow-up HIDA scan if concern for cholecystitis. 2. CBD slightly dilated at 7 mm.
[2023-06-17 09:39] LABS: HCT 34.8 % (39.0-53.0); HGB 12.3 gm/dL (13.0-17.5); MCHC 35.2 g/dL (31.0-37.0); MCV 93.7 fL (80.0-100.0); Mean Platelet Volume 7.6; Platelet Count 208 k/uL (150-450); RBC 3.72 m/uL (4.30-5.90); RDW 12.9 % (11.5-15.5)
[2023-06-17 10:00] LABS: African American GFR (CKD) >90 (>60 ml/min/1.73 sqM); Anion Gap 9 mmol/L; Blood Urea Nitrogen 9 mg/dL (9-20); Calcium 8.2 mg/dL (8.4-10.2); Carbon Dioxide 20 mmol/L (22-30); Chloride 109 mmol/L (98-107); Glucose 136 mg/dL (74-99); Non-African American GFR(CKD) >90 (>60 ml/min/1.73 sqM); Potassium 3.9 mmol/L (3.5-5.1); Sodium 138 mmol/L (137-145)
--- NOTE | 2023-06-17 15:39 | P.PN ---
Subjective Progress Note Date: 06/17/23 CHIEF COMPLAINT: Abdominal pain HISTORY OF PRESENT ILLNESS: Patient currently having no abdominal pain. Tolerating clear liquid diet. Abdominal ultrasound showing cholelithiasis with mild gallbladder wall thickening. However the gallbladder is contracted which may account for the gallbladder wall thickening. Trace amount of pericholecystic fluid. CBD slightly dilated at 7 mm. Afebrile. WBC 10 Hgb 12.3 platelets 208 sodium 138 potassium 3.9 creatinine 0.63 PHYSICAL EXAM: VITAL SIGNS: Reviewed. GENERAL: Well-developed in no acute distress. ABDOMEN: Soft. Nondistended. Nontender. NEUROLOGIC: Alert and oriented. Cranial nerves II through XII grossly intact. ASSESSMENT: 1. Biliary Colic 2. Epigastric abdominal pain with CT scan showing evidence of large gallstone and pericholecystic fluid raising question of acute cholecystitis 3. Chest pain evaluated by cardiology 4. New onset atrial fibrillation PLAN: -Patient scheduled for laparoscopic cholecystectomy tomorrow with Dr. Howe -N.p.o. after midnight -Continue antibiotics -Hold Eliquis for surgical intervention -Continue supportive care Physician Forming Acid Dumper note has been reviewed by physician. Signing provider agrees with the documented findings, assessment, and plan of care. Objective - Vital Signs Vital signs: Vital Signs Temp 98.9 F 06/17/23 11:28 Pulse 56 L 06/17/23 11:28 Resp 16 06/17/23 11:28 BP 147/66 06/17/23 11:28 Pulse Ox 96 06/17/23 11:28 FiO2 Intake & Output 06/16/23 06/17/23 06/17/23 18:59 06:59 18:59 Intake Total 358 Balance 358 Intake: Oral 358 Other: Voiding Method Toilet Toilet Toilet Urinal Urinal # Voids 1 # Bowel Movements 1 - Labs CBC & Chem 7: 06/17/23 08:33 06/17/23 08:33 Labs: Abnormal Lab Results - Last 24 Hours (Table) 06/17/23 06/17/23 Range/Units 08:33 08:33 RBC 3.72 L (4.30-5.90) m/uL Hgb 12.3 L (13.0-17.5) gm/dL Hct 34.8 L (39.0-53.0) % Chloride 109 H (98-107) mmol/L Carbon Dioxide 20 L (22-30) mmol/L Creatinine 0.63 L (0.66-1.25) mg/dL Glucose 136 H (74-99) mg/dL Calcium 8.2 L (8.4-10.2) mg/dL Microbiology - Last 24 Hours (Table) 06/14/23 10:58 Gram Stain - Final Sputum Sputum Culture - Final 06/13/23 19:58 Blood Culture - Preliminary Blood 06/13/23 19:58 Blood Culture - Preliminary Blood
[2023-06-17] MEDS: HEPARIN SODIUM,PORCINE 5,000 UNIT/ML 1 ML VIAL SQ SCH (18:37)
[2023-06-17] MEDS: PANTOPRAZOLE 40 MG/10 ML VIAL IVP SCH (18:37)
--- NOTE | 2023-06-18 01:45 | PN ---
PROGRESS NOTE DATE OF SERVICE: 06/17/2023 SUBJECTIVE: This is a 77-year-old gentleman who was admitted with new-onset atrial fibrillation, also had a cholelithiasis. The patient is evaluated by surgery. No chest pain, no palpitations. OBJECTIVE: VITAL SIGNS: Pulse is 56, blood pressure 147/76, respirations 16. CHEST: Scattered rhonchi and crackles. ABDOMEN: Soft. NERVOUS SYSTEM: No focal deficits. LABORATORY DATA: Reviewed. ASSESSMENT: 1. New-onset atrial ablation with rapid ventricular response. 2. Cholelithiasis with pericholecystic fluid collection, possible acute cholecystitis. 3. Right lower lobe pneumonia, possibly gram-negative. 4. Hypothyroidism. 5. Dyslipidemia. 6. History of diverticulosis. RECOMMENDATIONS: Recommended to continue current management, continue symptomatic treatment, otherwise at this time continue the antibiotics. The patient is on Levaquin at this time. Closely follow with surgery, DVT prophylaxis. Further recommendations to follow. MMODL / IJN: [id number] /
[2023-06-18] MEDS ORDERED: LIDOCAINE 1% (10MG/ML) FOR IV START INTRADERMA PRN (09:49)
[2023-06-18] MEDS ORDERED: HYDROmorphone 0.5 MG/0.5 ML SYRINGE IVP PRN (09:49)
[2023-06-18 09:53] LABS: Basophils % (A) 0 %; Eosinophils # (A) 0.2 k/uL (0-0.7); Eosinophils % (A) 2 %; HCT 36.1 % (39.0-53.0); HGB 12.5 gm/dL (13.0-17.5); Lymphocytes # (A) 1.1 k/uL (1.0-4.8); Lymphocytes % (A) 10 %; MCH 31.8 pg (25.0-35.0); MCHC 34.6 g/dL (31.0-37.0); Mean Platelet Volume 7.7; Monocytes # (A) 0.8 k/uL (0-1.0); Monocytes % (A) 7 %; Neutrophils # (A) 8.6 k/uL (1.3-7.7); Neutrophils % (A) 78 %; Platelet Count 248 k/uL (150-450); RBC 3.92 m/uL (4.30-5.90); RDW 13.2 % (11.5-15.5)
[2023-06-18 10:10] LABS: ALT 157 U/L (4-49); AST 64 U/L (17-59); African American GFR (CKD) >90 (>60 ml/min/1.73 sqM); Albumin 2.9 g/dL (3.5-5.0); Alkaline Phosphatase 126 U/L (38-126); Anion Gap 7 mmol/L; Blood Urea Nitrogen 8 mg/dL (9-20); Calcium 8.2 mg/dL (8.4-10.2); Carbon Dioxide 21 mmol/L (22-30); Chloride 108 mmol/L (98-107); Glucose 92 mg/dL (74-99); Non-African American GFR(CKD) >90 (>60 ml/min/1.73 sqM); Potassium 4.1 mmol/L (3.5-5.1); Sodium 136 mmol/L (137-145); Total Bilirubin 0.6 mg/dL (0.2-1.3); Total Protein 5.4 g/dL (6.3-8.2)
[2023-06-18 11:44] VITALS: BP 132/63; PULSE 65; RESP 16; TEMP 98.2
[2023-06-18] MEDS: DEXAMETHASONE SOD PHOSPHATE 4 MG/ML 1 ML VIAL IV ONE (12:07)
[2023-06-18] MEDS: LACTATED RINGERS 1,000 ML IV SCH (12:07)
[2023-06-18] MEDS: ONDANSETRON 4 MG/2 ML VIAL IVP ONE (12:08)
--- NOTE | 2023-06-18 15:54 | P.PN ---
Subjective Progress Note Date: 06/18/23 CHIEF COMPLAINT: Abdominal pain HISTORY OF PRESENT ILLNESS: Patient denies any abdominal pain. Denies any nausea or vomiting. Tolerated diet yesterday. Patient is requesting no surgical intervention at this time. He wants to follow-up with the surgeon outpatient. Surgery has been canceled for today. PHYSICAL EXAM: VITAL SIGNS: Reviewed. GENERAL: Well-developed in no acute distress. ABDOMEN: Soft. Nondistended. Nontender. NEUROLOGIC: Alert and oriented. Cranial nerves II through XII grossly intact. ASSESSMENT: 1. Biliary Colic 2. Epigastric abdominal pain with CT scan showing evidence of large gallstone and pericholecystic fluid raising question of acute cholecystitis 3. Chest pain evaluated by cardiology 4. New onset atrial fibrillation PLAN: -Surgery canceled today per patient's request -Patient can be discharged with outpatient follow-up with surgeon Physician Tumbler Operator note has been reviewed by physician. Signing provider agrees with the documented findings, assessment, and plan of care. Objective - Vital Signs Vital signs: Vital Signs Temp 98.2 F 06/18/23 11:26 Pulse 65 06/18/23 11:26 Resp 16 06/18/23 11:26 BP 132/63 06/18/23 11:26 Pulse Ox 96 06/18/23 11:26 FiO2 Intake & Output 06/17/23 06/18/23 06/18/23 18:59 06:59 18:59 Intake Total 118 Balance 118 Weight 86.5 kg Intake: Oral 118 Other: Voiding Method Toilet Toilet Toilet # Voids 3 1 # Bowel Movements 2 - Labs CBC & Chem 7: 06/18/23 08:30 06/18/23 08:30 Labs: Abnormal Lab Results - Last 24 Hours (Table) 06/18/23 06/18/23 Range/Units 08:30 08:30 WBC 11.0 H (3.8-10.6) k/uL RBC 3.92 L (4.30-5.90) m/uL Hgb 12.5 L (13.0-17.5) gm/dL Hct 36.1 L (39.0-53.0) % Neutrophils # 8.6 H (1.3-7.7) k/uL Sodium 136 L (137-145) mmol/L Chloride 108 H (98-107) mmol/L Carbon Dioxide 21 L (22-30) mmol/L BUN 8 L (9-20) mg/dL Creatinine 0.62 L (0.66-1.25) mg/dL Calcium 8.2 L (8.4-10.2) mg/dL AST 64 H (17-59) U/L ALT 157 H (4-49) U/L Total Protein 5.4 L (6.3-8.2) g/dL Albumin 2.9 L (3.5-5.0) g/dL
--- NOTE | 2023-06-19 05:11 | P.DS ---
Providers Date of admission: 06/14/23 02:09 Expected date of discharge: 06/18/23 Attending physician: Kaity Manrique Consults: 06/14/23 02:07 Consult Physician Routine Consulting Provider: Mykel Chauhan Consult Reason/Comments: Atrial fibrillation with rapid ventricular rate Do you want consulting provider notified?: Yes 06/16/23 12:35 Consult Physician Routine Consulting Provider: Joseph Howe Consult Reason/Comments: Cholelithiasis and abdominal pain Do you want consulting provider notified?: Yes Primary care physician: Willis Worthy Hospital Course: Final diagnosis New onset atrial fibrillation with rapid ventricular response, currently rate controlled Cholelithiasis with pericholecystic fluid collection, concerns for acute cholecystitis Right lower lobe pneumonia ruled in History of hypothyroid Dyslipidemia History of diverticulosis Obesity with a BMI of 30.8 GI prophylaxis DVT prophylaxis Full code Discharge disposition Patient is being discharged in a stable condition with guarded prognosis to home. Patient will follow-up with Dr. Willis Worthy in the outpatient setting upon discharge. Patient is to continue with current medications and outpatient follow-up with cardiology as scheduled. Patient to follow-up with general surgery Dr. Lawler in the outpatient setting as scheduled. Total time taken is greater than 35 minutes. Hospital course This is a 78-year-old male who was recently admitted with chest pain and palpitations and found to have new onset atrial fibrillation with RVR. Patient was started on heparin and Cardizem with cardiology following and is now discontinued from heparin and Cardizem currently rate controlled. Patient is being started on Eliquis. Patient also had a CT abdomen concerns for cholelithiasis with pericholecystic fluid with concerns of cholecystitis maintained on Levaquin and initially evaluated by general surgery with plans of cholecystectomy. Patient and family would like to follow-up with Dr. Lawler for evaluation in the outpatient setting. An appointment has been made and patient will follow-up in the next 1 to 2 weeks. Patient reports to feeling well and would like to go home and has been cleared by consultations. Please refer to other consultation notes for further HPI. Patient will continue on Levaquin daily for the next 1 week. Currently no reports of chest pain, shortness of breath, or palpitations. Patient is afebrile. No reports of nausea or vomiting and patient is tolerating diet. Patient denies any abdominal pain and has refused surgery with Dr. Howe this admission and requesting Dr. Lawler. Patient will follow-up in the outpatient setting. Patient will be discharged home today. Guarded prognosis and high risk for readmission Physical exam: Gen: This is a 78-year-old male who is awake, alert and oriented x 3, well- developed, well-nourished, obese HEENT: Head is atraumatic, normocephalic. Pupils equal, round. Sclerae is anicteric. NECK: Supple. No JVD. No lymphadenopathy. No thyromegaly. LUNGS: Diminished breath sounds bilaterally otherwise clear to auscultation. No wheezes or rhonchi. No intercostal retractions. HEART: S1, S2 are muffled, irregular ABDOMEN: Soft. Bowel sounds are present. No masses. No tenderness. EXTREMITIES: No pedal edema. No calf tenderness. NEUROLOGICAL: Patient is awake, alert and oriented x3. Cranial nerves 2 through 12 are grossly intact. Please refer to medication reconciliation sheet for a list of medications. The impression and plan of care has been dictated by Zoë Agudelo, Nurse Prac titioner as directed. Dr. Burton MD I have performed a history and examination and MDM of this patient, discussed the same with the dictator, and agree with the dictator's assessment and plan as written ,documented as a scribe. Based on total visit time, I have performed more than 50% of the visit. Patient Condition at Discharge: Stable Plan - Discharge Summary Discharge Rx Participant: No New Discharge Prescriptions: New Nitroglycerin Sl Tabs [Nitrostat] 0.4 mg SUBLINGUAL Q5M PRN #20 tab PRN Reason: Chest Pain Pantoprazole [Protonix] 40 mg PO DAILY #30 tab Acetaminophen Tab [Tylenol] 650 mg PO Q6HR PRN tab PRN Reason: Mild Pain Or Fever > 100.5 Levofloxacin [Levaquin] 750 mg PO DAILY 7 Days #7 tab Metoprolol Succinate (ER) [Toprol XL] 25 mg PO DAILY #30 tab Apixaban [Eliquis] 5 mg PO BID 30 Days #60 tab Continue Atorvastatin [Lipitor] 40 mg PO HS Vit C/E/Zn/Coppr/Lutein/Zeaxan [Preservision Areds 2 Softgel] 1 cap PO BID Levothyroxine Sodium [Synthroid] 125 mcg PO DAILY Docusate [Colace] 100 mg PO DAILY PRN PRN Reason: Constipation Cholecalciferol [Vitamin D3 (25 Mcg = 1000 Iu)] 25 mcg PO BID Simethicone Chew [Mylicon Chew] 40 mg PO QID 7 Days #28 tab Discharge Medication List Atorvastatin [Lipitor] 40 mg PO HS 03/12/17 [History] Vit C/E/Zn/Coppr/Lutein/Zeaxan [Preservision Areds 2 Softgel] 1 cap PO BID 02/13/18 [History] Cholecalciferol [Vitamin D3 (25 Mcg = 1000 Iu)] 25 mcg PO BID 06/11/23 [History] Docusate [Colace] 100 mg PO DAILY PRN 06/11/23 [History] Simethicone Chew [Mylicon Chew] 40 mg PO QID 7 Days #28 tab 06/11/23 [Rx] Levothyroxine Sodium [Synthroid] 125 mcg PO DAILY 06/14/23 [History] Acetaminophen Tab [Tylenol] 650 mg PO Q6HR PRN tab 06/18/23 [Rx] Apixaban [Eliquis] 5 mg PO BID 30 Days #60 tab 06/18/23 [Rx] Levofloxacin [Levaquin] 750 mg PO DAILY 7 Days #7 tab 06/18/23 [Rx] Metoprolol Succinate (ER) [Toprol XL] 25 mg PO DAILY #30 tab 06/18/23 [Rx] Nitroglycerin Sl Tabs [Nitrostat] 0.4 mg SUBLINGUAL Q5M PRN #20 tab 06/18/23 [Rx] Pantoprazole [Protonix] 40 mg PO DAILY #30 tab 06/18/23 [Rx] Follow up Appointment(s)/Referral(s): Jose Lawler MD [Medical Doctor] - 07/02/23 2:00 pm Mykel Chauhan MD [STAFF PHYSICIAN] - 1 Week (Office will call you to schedule follow up) Willis Worthy MD [Primary Care Provider] - 06/19/23 10:15 am Ambulatory/Diagnostic Orders: Complete Blood Count w/diff [LAB.AMB] Time Frame: 3 Days, Location: None Selected Patient Instructions/Handouts: A-fib (Atrial Fibrillation) (IP) Activity/Diet/Wound Care/Special Instructions: Activity limited until follow-up Follow-up with primary care provider on discharge Follow-up cardiology outpatient Continue taking medications as prescribed Follow-up with general surgery and Dr. Lawler's office may call you Continue current diet Discharge Disposition: HOME SELF-CARE
== END 2023-06-18 13:41 | disposition home or self-care (01) | DRG 308 ==
LOC: EC 17:08 → 3SCARD 06-14 02:09
PROVIDERS: ADMIT Hospitalist; ATTEND Hospitalist
DX: I48.0 Paroxysmal atrial fibrillation (principal); J18.9 Pneumonia, unspecified organism; E78.5 Hyperlipidemia, unspecified; E03.9 Hypothyroidism, unspecified; Z79.890 Hormone replacement therapy; Z85.46 Personal history of malignant neoplasm of prostate; Z11.52 Encounter for screening for COVID-19; Z92.3 Personal history of irradiation; K80.20 Calculus of gallbladder without cholecystitis without obstruction; E66.9 Obesity, unspecified; K59.00 Constipation, unspecified; Z68.30 Body mass index [BMI] 30.0-30.9, adult; Z79.01 Long term (current) use of anticoagulants; Z79.899 Other long term (current) drug therapy
CPT/HCPCS: 36415; 71045; 71046; 74176; 76705; 80048; 80053; 80061; 81001; 83605; 83735; 84145; 84443; 84484; 85025; 85027; 85610; 85730; 86140; 87040; 87070; 87205; 87449; 87636; 93005; 94760; 96361; 96365; 96366; 96367; 99291

== ENCOUNTER → 2023-06-24 | Outpatient (CLI) | payer OTHER ==
[2023-06-24 16:23] LABS: Basophils # (A) 0.06 X 10*3/uL (0.00-0.10); Basophils % (A) 0.6 %; Eosinophils # (A) 0.12 X 10*3/uL (0.04-0.35); Eosinophils % (A) 1.2 %; HCT 43.5 % (39.6-50.0); HGB 14.3 g/dL (13.0-17.0); Lymphocytes # (A) 2.09 X 10*3/uL (0.90-5.00); Lymphocytes % (A) 21.2 %; MCH 31.2 pg (27.0-32.0); MCHC 32.9 g/dL (32.0-37.0); MCV 94.8 FL (80.0-97.0); Monocytes # (A) 0.78 X 10*3/uL (0.20-1.00); Monocytes % (A) 7.9 %; NRBC Per 100 WBC 0 X 10*3/uL (0.00-0.01); Neutrophils # (A) 6.74 X 10*3/uL (1.80-7.70); Neutrophils % (A) 68.4 %; Platelet Count 367 X 10*3/uL (140-440); RBC 4.59 X 10*6/uL (4.40-5.60); RDW 13.2 % (11.5-14.5); WBC 9.86 X 10*3/uL (4.50-10.00)
== END | disposition home or self-care (01) ==
LOC: LABWHC1 11:40
PROVIDERS: ATTEND Registered Nurse
DX: D72.829 Elevated white blood cell count, unspecified (principal)
CPT/HCPCS: 36415; 85025

== ENCOUNTER 2023-07-21 06:00 | Day surgery (SDC) | payer MEDICARE, OTHER ==
[2023-07-16 10:28] VITALS: BMI 29.7
[~2023-07-21 06:00] MED LIST changes: -LACTATED RINGERS 1,000 ML IV SCH; +MIDAZOLAM 2 MG/2 ML VIAL IV PRN; -PROPOFOL 10 MG/ML 20 ML VIAL IV ONE
[2023-07-21] MEDS: LACTATED RINGERS 1,000 ML IV SCH (06:47)
[2023-07-21] MEDS ORDERED: ACETAMINOPHEN TAB 500 MG TAB ONE (06:57)
[2023-07-21] MEDS: DEXAMETHASONE SOD PHOSPHATE 4 MG/ML 1 ML VIAL IV ONE (07:15)
[2023-07-21] MEDS: ONDANSETRON 4 MG/2 ML VIAL IVP ONE (07:15)
[2023-07-21] MEDS: ACETAMINOPHEN TAB 500 MG TAB PO PRN (07:15)
[2023-07-21] MEDS: HEPARIN SODIUM,PORCINE 5,000 UNIT/ML 1 ML VIAL SQ PRN (07:15)
[2023-07-21] MEDS ORDERED: ROCURONIUM 10 MG/ML (5 ML VIAL) IV ONE (07:24)
[2023-07-21] MEDS ORDERED: ePHEDrine 50 MG/ML 1 ML VIAL ONE (07:24)
[2023-07-21] MEDS ORDERED: GLYCOPYRROLATE 0.2 MG/ML 2 ML VIAL ONE (07:24)
[2023-07-21] MEDS ORDERED: PHENYLEPHRINE 10 MG/ML VIAL ONE (07:24)
[2023-07-21] MEDS ORDERED: fentaNYL (PF) 50 MCG/ML 2 ML AMP ONE (07:24)
[2023-07-21] MEDS ORDERED: PROPOFOL 10 MG/ML 20 ML VIAL IV ONE (07:24)
[2023-07-21] MEDS ORDERED: SUCCINYLCHOLINE CHLORIDE 200 MG/10 ML VIAL IV ONE (07:24)
[2023-07-21] MEDS ORDERED: MIDAZOLAM 2 MG/2 ML VIAL ONE (07:24)
[2023-07-21] MEDS ORDERED: LIDOCAINE 1% INJ 10MG/ML (20 ML MDV) ONE (07:24)
[2023-07-21] MEDS ORDERED: NEOSTIGMINE 1 MG/ML 10 ML VIAL ONE (07:24)
[2023-07-21] MEDS: BUPIVACAINE (PF) 0.25% 30 ML VIAL SQ ONE (07:54)
[2023-07-21] MEDS ORDERED: ACETAMINOPHEN TAB 325 MG TAB PO SCH (09:00)
--- NOTE | 2023-07-21 09:02 | P.OP ---
Date of Procedure: 07/21/23 Procedure(s) Performed: PREOPERATIVE DIAGNOSIS: Chronic cholecystitis POSTOPERATIVE DIAGNOSIS: Same PROCEDURE: Laparoscopic cholecystectomy SURGEON: Bucky EBL: Minimal see anesthesia record ANESTHESIA: Gen. COMPLICATIONS: None OPERATIVE PROCEDURE: The patient was brought and placed on the operating room table in the supine position. The patient was placed under general anesthesia at that time. The abdomen was prepped and draped in the usual sterile fashion. A small vertical infraumbilical incision was made. The fascia was grasped with the Venu forceps. The fascia was retracted anteriorly. The Veress needle was advanced into the peritoneal cavity. The saline drop test was normal. Insufflation took place up to 15 mmHg. A 5 mm optical trocar was advanced and the peritoneal cavity. 2 additional 5 mm trochars were placed in the right upper quadrant under direct visualization. A 12 mm trocar was advanced into the epigastric incision site. The gallbladder was chronically inflamed. It was contracted and during the dissection a small opening in the gallbladder wall was created posteriorly and pus was found in the gallbladder. The LigaSure was utilized for some of the dissection. The gallbladder was retracted superiorly and laterally. The peritoneum overlying the infundibulum was bluntly dissected. The patient's cystic duct was visualized. The junction between the cystic duct common and hepatic duct was identified. The critical view of safety was achieved after blunt dissection. The cystic duct was then divided after placement of 3 12 mm clips on the patient's side and one on the specimen side. The cystic artery was identified and clipped as well. A small vessel was seen along the gallbladder fossa and clipped as well. The gallbladder was then removed from the liver bed using electrocautery. The gallbladder was then removed from the epigastric trocar site with an Endo Catch bag. The gallbladder fossa was irrigated with saline. There was no evidence of any bleeding or biliary drainage seen. The fascia at the 12 millimeter site was closed using a Isauroon 0 Vicryl stitch. The trochars were then removed. The skin at all 4 sites was closed using a 4-0 Monocryl stitch. Skin glue was utilized on the incision sites. At the end of this procedure the sponge and needle counts were correct. DISPOSITION: Stable to the recovery room
[2023-07-21 09:25] VITALS: TEMP 97.6
[2023-07-21] MEDS: HYDROmorphone 0.5 MG/0.5 ML SYRINGE IVP PRN (09:25)
[2023-07-21] MEDS: LACTATED RINGERS 1,000 ML IV ONE (09:44)
[2023-07-21] MEDS: IBUPROFEN 600 MG TAB PO SCH (10:17)
[2023-07-21 10:36] VITALS: RESP 16
[2023-07-21 11:11] VITALS: BP 125/63; PULSE 57
== END 2023-07-21 11:00 | disposition home or self-care (01) ==
LOC: OR 06:00
PROVIDERS: ATTEND Surgery
DX: K80.12 Calculus of gallbladder with acute and chronic cholecystitis without obstruction (principal); I48.91 Unspecified atrial fibrillation; E78.5 Hyperlipidemia, unspecified; G47.33 Obstructive sleep apnea (adult) (pediatric); E07.9 Disorder of thyroid, unspecified; M19.90 Unspecified osteoarthritis, unspecified site; Z79.01 Long term (current) use of anticoagulants; Z79.899 Other long term (current) drug therapy; Z88.0 Allergy status to penicillin; Z88.8 Allergy status to other drugs, medicaments and biological substances
CPT/HCPCS: 88304; 47562; J2250; J0330; J1644; J1100; J2710; J0690; J2405; J2001; J3010; J2704; J1170; J2371; J0665

== ENCOUNTER → 2024-04-23 | Day surgery (SDC) | payer MEDICARE, OTHER ==
[2024-04-22 10:02] VITALS: BMI 29.0
[~2024-04-23] MED LIST changes: +LIDOCAINE 1% INJ 10MG/ML (20 ML MDV) ONE; -MIDAZOLAM 2 MG/2 ML VIAL IV PRN; +PROPOFOL 10 MG/ML 20 ML VIAL IV ONE
[2024-04-23] MEDS: IV FLUID CONTINUATION 1,000 ML IV ONE (15:25)
[2024-04-23 15:31] VITALS: TEMP 97.2
[2024-04-23] MEDS: LACTATED RINGERS 1,000 ML IV SCH (15:38)
--- NOTE | 2024-04-23 16:19 | P.PCN ---
Date of Procedure: 04/23/24 Procedure(s) Performed: BRIEF HISTORY: Patient is a 78-year-old, pleasant, white male scheduled for an upper endoscopy as a part evaluation [place] dysphagia to solids. He does have family history of esophageal cancer diagnosed in his brother and his father at 70 and 75 respectively. PROCEDURE PERFORMED: Esophagogastroduodenoscopy. PREOPERATIVE DIAGNOSIS: Remaining dysphagia to solids and family history of esophageal cancer. IV sedation per anesthesia. PROCEDURE: After informed consent was obtained, the patient was brought into the endoscopy unit. IV sedation was administered by Anesthesia under continuous monitoring. Initially the Olympus GIF-140 video endoscope was inserted into the mouth. Esophagus intubated without any difficulty. It was gradually advanced into the stomach and duodenum and carefully examined. The bulb and the second part of the duodenum had mild duodenitis. l. The scope at this time was withdrawn to the stomach, adequately insufflated with air, and upon careful examination, mucosa of the antrum, and mild gastritis. Mucosa of the body, cardia and the fundus appeared normal. The scope was then withdrawn into the esophagus. Mild sliding-type hiatal hernia noted. The GE junction was located at 39 cm from the incisors. The esophagus appeared normal. There were no erosions or ulcerations seen and the patient tolerated the procedure well. IMPRESSION: 1. Mild antral gastritis and duodenitis. 2. Small hiatal hernia but no evidence of esophagitis or Alberto's esophagus. RECOMMENDATIONS: The findings of this examination were discussed with the patient as well as his family. He was advised to use [id number] antacids as needed for reflux symptoms..
[2024-04-23 17:00] VITALS: BP 150/73; PULSE 57; RESP 20
== END ==
LOC: ORWHC2ENDO 13:14
PROVIDERS: ATTEND Internal Medicine Gastroenterology
DX: K29.80 Duodenitis without bleeding (principal); K44.9 Diaphragmatic hernia without obstruction or gangrene; E78.5 Hyperlipidemia, unspecified; I48.91 Unspecified atrial fibrillation; G47.33 Obstructive sleep apnea (adult) (pediatric); E07.9 Disorder of thyroid, unspecified; M19.90 Unspecified osteoarthritis, unspecified site; Z86.0100 Personal history of colon polyps, unspecified; Z80.0 Family history of malignant neoplasm of digestive organs; Z85.46 Personal history of malignant neoplasm of prostate; Z79.01 Long term (current) use of anticoagulants; Z79.899 Other long term (current) drug therapy; Z91.030 Bee allergy status; Z88.0 Allergy status to penicillin; Z88.8 Allergy status to other drugs, medicaments and biological substances; Z79.1 Long term (current) use of non-steroidal anti-inflammatories (NSAID)
CPT/HCPCS: 43235; J2003; J2704

== ENCOUNTER 2024-06-02 09:02 | Emergency (ER) | payer OTHER ==
[2024-06-02 09:06] VITALS: TEMP 98.6
--- NOTE | 2024-06-02 09:25 | ED ---
Fall HPI - General Chief Complaint: Fall Stated Complaint: Fall on thinner-Back injury Time Seen by Provider: 06/02/24 09:10 Source: patient, RN notes reviewed Mode of arrival: ambulatory Limitations: no limitations - History of Present Illness Initial Comments: 78-year-old male presents emergency department with chief complaint of slip and fall. Patient states he slipped on some ice last night falling backwards striking his upper back, neck and head region. He is on Eliquis for A-fib. Patient states he felt initially dazed but does not have any significant confusion, head pain at this time. Patient states he has pain when he takes a deep inspiration denies any exertional symptoms no shortness of breath. No lower extremity injuries. - Related Data Home Medications Medication Instructions Recorded Confirmed Atorvastatin [Lipitor] 40 mg PO HS 03/12/17 04/23/24 Vit C/E/Zn/Coppr/Lutein/Zeaxan 1 cap PO BID 02/13/18 04/23/24 [Preservision Areds 2 Softgel] Cholecalciferol [Vitamin D3 (25 25 mcg PO BID 06/11/23 04/23/24 Mcg = 1000 Iu)] Docusate [Colace] 100 mg PO DAILY PRN 06/11/23 04/23/24 Levothyroxine Sodium [Synthroid] 125 mcg PO QAM 06/14/23 04/23/24 Metoprolol Succinate (ER) [Toprol 25 mg PO HS 07/16/23 04/23/24 XL] Previous Rx's Medication Instructions Recorded Acetaminophen Tab [Tylenol] 650 mg PO Q6HR PRN tab 06/18/23 Apixaban [Eliquis] 5 mg PO BID 30 Days #60 tab 06/18/23 Nitroglycerin Sl Tabs [Nitrostat] 0.4 mg SUBLINGUAL Q5M PRN #20 tab 06/18/23 oxyCODONE HCL [OxyIR] 5 mg PO Q6H PRN 3 Days #6 tab 07/21/23 Allergies Allergy/AdvReac Type Severity Reaction Status Date / Time bee venom protein (honey bee) Allergy Swelling Verified 04/23/24 15:24 Penicillins Allergy Anaphylaxis Verified 04/23/24 15:24 lopid Allergy "Makes him Uncoded 04/23/24 15:24 sleepy" Review of Systems ROS Statement: Those systems with pertinent positive or pertinent negative responses have been documented in the HPI. ROS Other: All systems not noted in ROS Statement are negative. Past Medical History Past Medical History: Atrial Fibrillation, Cancer, Hyperlipidemia, Osteoarthritis (OA), Skin Disorder, Sleep Apnea/CPAP/BIPAP, Thyroid Disorder Additional Past Medical History / Comment(s): RECENT onset A-Fib Jun 2023, Recent Cholecystitis May 2023. possible sleep apnea-no tx., enlarged prostate, hx. colon polyps prostate ca 2020 radiation tx and clear, hypothyroid. History of Any Multi-Drug Resistant Organisms: None Reported Past Surgical History: Cholecystectomy, Orthopedic Surgery Additional Past Surgical History / Comment(s): lt eye vitrectomy( july 2016).vasectomy, cataracts removed,colonoscopy, meniscul left knee repair Past Anesthesia/Blood Transfusion Reactions: No Reported Reaction, Postoperative Nausea & Vomiting (PONV) Additional Past Anesthesia/Blood Transfusion Reaction / Comment(s): no blood transfusion Past Psychological History: No Psychological Hx Reported Smoking Status: Never smoker - Past Family History Mother Additional Family Medical History / Comment(s): CABG Father Family Medical History: Cancer Additional Family Medical History / Comment(s): esophageal Brother(s) Family Medical History: Cancer, Diabetes Mellitus Additional Family Medical History / Comment(s): kidney, another brother bladder cancer., brother esophageal Sister(s) Family Medical History: Cancer Additional Family Medical History / Comment(s): Two sister's with breast cancer. General Exam Limitations: no limitations General appearance: alert, in no apparent distress Head exam: Present: atraumatic, normocephalic, normal inspection Eye exam: Present: normal appearance, PERRL, EOMI. Absent: scleral icterus, conjunctival injection, periorbital swelling ENT exam: Present: normal exam, normal oropharynx, mucous membranes moist Neck exam: Present: normal inspection, tenderness (Paraspinal), full ROM. Absent: meningismus, lymphadenopathy Respiratory exam: Present: normal lung sounds bilaterally, chest wall tenderness. Absent: respiratory distress, wheezes, rales, rhonchi, stridor Cardiovascular Exam: Present: regular rate, normal rhythm, normal heart sounds. Absent: systolic murmur, diastolic murmur, rubs, gallop, clicks GI/Abdominal exam: Present: soft, normal bowel sounds. Absent: distended, te nderness, guarding, rebound, rigid Extremities exam: Present: normal inspection, full ROM, normal capillary refill. Absent: tenderness, pedal edema, joint swelling, calf tenderness Back exam: Present: normal inspection, full ROM, tenderness, paraspinal tenderness. Absent: vertebral tenderness Neurological exam: Present: alert, oriented X3, CN II-XII intact, reflexes normal. Absent: motor sensory deficit Course Vital Signs 06/02/24 09:02 Temperature 98.6 F Pulse Rate 59 L Respiratory 16 Rate Blood Pressure 137/81 O2 Sat by Pulse 98 Oximetry Medical Decision Making - Medical Decision Making Was pt. sent in by a medical professional or institution (, PA, MERCHANDISE DISTRIBUTOR, urgent care, hospital, or penitentiary...) When possible be specific @ -No Did you speak to anyone other than the patient for history (EMS, parent, family, police, friend...)? What history was obtained from this source @ -No Did you review nursing and triage notes (agree or disagree)? Why? @ -I reviewed and agree with nursing and triage notes Were old charts reviewed (outside hosp., previous admission, EMS record, old EKG, old radiological studies, urgent care reports/EKG's, penitentiary records)? Report findings @ -No old charts were reviewed Differential Diagnosis (chest pain, altered mental status, abdominal pain women, abdominal pain men, vaginal bleeding, weakness, fever, dyspnea, syncope, headache, dizziness, GI bleed, back pain, seizure, CVA, palpatations, mental health, musculoskeletal)? @ -Fall, rib fracture, rib contusion, thoracic fracture, intracranial hemorrhage, cervical fracture cervical strain this is is not all inclusive. EKG interpreted by me (3pts min.). @ -None X-rays interpreted by me (1pt min.). @ -None done CT interpreted by me (1pt min.). @ -CT brain, C-spine showing no acute intracranial hemorrhage, mass effect, cervical fracture CT chest no rib fracture no pneumothorax U/S interpreted by me (1pt. min.). @ -None done What testing was considered but not performed or refused? (CT, X-rays, U/S, labs)? Why? @ -None What meds were considered but not given or refused? Why? @ -None Did you discuss the management of the patient with other professionals (professionals i.e. , PA, MERCHANDISE DISTRIBUTOR, lab, RT, psych nurse, vp digital marketing social media and crm, blasting entryman, teacher, tactical intelligence officer, director case)? Give summary @ -No Was smoking cessation discussed for >3mins.? @ -No Was critical care preformed (if so, how long)? @ -No Were there social determinants of health that impacted care today? How? (Homelessness, low income, unemployed, alcoholism, drug addiction, transportation, low edu. Level, literacy, decrease access to med. care, long term, rehab)? @ -No Was there de-escalation of care discussed even if they declined (Discuss DNR or withdrawal of care, Hospice)? DNR status @ -No What co-morbidities impacted this encounter? (DM, HTN, Smoking, COPD, CAD, Cancer, CVA, ARF, Chemo, Hep., AIDS, mental health diagnosis, sleep apnea, morbid obesity)? @ -None Was patient admitted / discharged? Hospital course, mention meds given and route, prescriptions, significant lab abnormalities, going to OR and other pertinent info. @ -Patient presented after a fall CT of the head neck and chest are negative for acute process patient has chest wall, back contusion patient discharged in stable condition. Undiagnosed new problem with uncertain prognosis? @ -No Drug Therapy requiring intensive monitoring for toxicity (Heparin, Nitro, Insulin, Cardizem)? @ -No Were any procedures done? @ -No Diagnosis/symptom? @ -Chest wall contusion, back pain Acute, or Chronic, or Acute on Chronic? @ -Acute Uncomplicated (without systemic symptoms) or Complicated (systemic symptoms)? @ -uncomplicated Side effects of treatment? @ -No Exacerbation, Progression, or Severe Exacerbation? @ -No Poses a threat to life or bodily function? How? (Chest pain, [place], NC, pneumonia, PE, COPD, DKA, ARF, appy, cholecystitis, CVA, Diverticulitis, Homicidal, Suicidal, threat to staff... and all critical care pts) @ -No Disposition Clinical Impression: Fall, Contusion, chest wall, Back pain Disposition: HOME SELF-CARE Condition: Stable Instructions (If sedation given, give patient instructions): Chest Wall Pain (ED) Additional Instructions: Please return to the Emergency Department if symptoms worsen or any other concerns. Is patient prescribed a controlled substance at d/c from ED?: No Referrals: Willis Worthy MD [Primary Care Provider] - 1-2 days Time of Disposition: 10:14
--- NOTE | 2024-06-02 09:58 | CT ---
EXAMINATION TYPE: CT brain cspine wo con DATE OF EXAM: 06/02/2024 9:55 AM COMPARISON: None. CLINICAL INDICATION: Male, 78 years old with history of pain; fell last night/hit back of head, pain TECHNIQUE: Brain: Multiple axial CT images of the brain were obtained without IV contrast. Cspine: Axial CT images from the skull base to the inferior aspect of T2 we obtained without intraven ous contrast. Coronal and sagittal reformatted images were also reviewed. . CT DLP: 1613 mGycm, Automated exposure control for dose reduction was used. FINDINGS: Brain: Extra-axial spaces: No abnormal extra-axial fluid collections. Ventricular system: Dilatation in proportion to cerebral atrophy. Cerebral parenchyma: Cerebral atrophy. No acute intraparenchymal hemorrhage or mass effect. The cardozo -white junction is well differentiated. Scattered hypoattenuating areas are seen within the white mat ter. Cerebellum: Unremarkable. Mass effect: No evidence of midline shift. Intracranial vasculature: Atherosclerotic calcifications of the intracranial vessels. Soft tissues: Normal. Calvarium/osseous structures: No depressed skull fracture. Paranasal sinuses and mastoid air cells: Clear. Visualized orbits: Bilateral aphakia Cervical spine: Fracture: None. Osseous structures: Multilevel degenerative disc disease changes with endplate spurring and disc oste ophyte complex's. Vertebral alignment: Within normal limits. Spinal canal/Neural Foramina: No evidence of significant spinal canal narrowing. No evidence for sign ificant neural foraminal stenosis. Neck soft tissues: Prevertebral soft tissues are within normal limits. Other: The airway is patent. The lung apices are clear. IMPRESSION: 1. No acute intracranial process. 2. Nonspecific white matter changes, likely secondary to chronic small vessel ischemic disease. 3. No evidence of cervical spine fracture. 4. Moderate multilevel degenerative disc disease. [facility], , 06/02/2024 9:55 AM
--- NOTE | 2024-06-02 10:03 | CT ---
EXAMINATION TYPE: CT chest wo con DATE OF EXAM: 06/02/2024 9:55 AM COMPARISON: Chest radiograph from same day. CLINICAL INDICATION: Male, 78 years old with history of fall, pain; PHH, fell last night/ hit back of head/ pain between shoulders TECHNIQUE: Multiple axial images were obtained through the chest. Sagittal and coronal reformats were created for review. MIP was performed on a separate workstation. Contrast used: mL of (None if empty) Oral contrast used: (None if empty) CT DLP: 2045.3 mGycm, Automated exposure control for dose reduction was used. FINDINGS: LUNGS/ PLEURA: No focal consolidation, pneumothorax or pleural effusion. Mild centrilobular emphysema changes throughout the lungs. AIRWAY: Patent and unremarkable. HEART: Size within normal limits MEDIASTINUM: VASCULATURE: No aortic aneurysm. MUSCULOSKELETAL: Moderate disc degeneration changes are present throughout the thoracolumbar spine se condary to osteophyte formation and facet joint arthropathy. Bridging syndesmophytes anteriorly. SOFT TISSUES/LYMPH NODES: Unremarkable. LOWER NECK: No significant findings. UPPER ABDOMEN: The gallbladder surgically absent. Few scattered colonic diverticula. IMPRESSION: 1. No evidence for spinal fracture. 2. The osseous structures appear intact. 3. Diffuse idiopathic skeletal hyperostosis. [facility], , 06/02/2024 10:01 AM
[2024-06-02 10:41] VITALS: BP 131/69; PULSE 50; RESP 18
== END 2024-06-02 10:42 | disposition home or self-care (01) ==
LOC: EC 09:02
DX: S20.219A Contusion of unspecified front wall of thorax, initial encounter (principal); M54.9 Dorsalgia, unspecified; Z91.030 Bee allergy status; Z88.0 Allergy status to penicillin; Z88.8 Allergy status to other drugs, medicaments and biological substances; W00.0XXA Fall on same level due to ice and snow, initial encounter
CPT/HCPCS: 70450; 71250; 72125; 99284